=== PATIENT | female | born 1950 | race Caucasian/White ===

== ENCOUNTER 2017-05-18 12:17 | Emergency (ER) | payer BC, MEDICARE ==
[2017-05-18 13:01] VITALS: PULSE 77; RESP 16
[2017-05-18] MEDS ORDERED: SODIUM CHLORIDE 0.9% 500 ML IV STA (14:09)
--- NOTE | 2017-05-18 14:13 | ED ---
General Adult HPI - General Chief complaint: Recheck/Abnormal Lab/Rx Stated complaint: dehydration Time Seen by Provider: 05/18/17 13:00 Source: patient, RN notes reviewed Mode of arrival: ambulatory Limitations: no limitations - History of Present Illness Initial comments: This is a 66-year-old female presents emergency Department who comes emergency Department complaining of generalized weakness since Wednesday patient states she does anything with any exertion and she feels extremely tired. Patient states there is no pain she has had no fever there's been no nausea vomiting. Patient denies any headache patient denies being lightheaded or dizzy. Patient denies chest pain palpitations difficulty breathing shortness of breath. Patient denies any abdominal pain. Patient denies any back pain. Patient denies any dysuria hematuria urinary frequency. Patient states she normally drinks 4 caffeinated cups of tea every day but hasn't done so the last few days ago she feels as though she has no taste for tea or food. - Related Data Home Medications Medication Instructions Recorded Confirmed Ferrous Sulfate [Iron] 325 mg PO HS 05/18/17 05/18/17 Lisinopril [Zestril] 10 mg PO HS 05/18/17 05/18/17 Lovastatin [Mevacor] 20 mg PO HS 05/18/17 05/18/17 Montelukast Sodium [Singulair] 10 mg PO HS 05/18/17 05/18/17 Pioglitazone [Actos] 15 mg PO HS 05/18/17 05/18/17 Verapamil HCl 360 mg PO HS 05/18/17 05/18/17 Allergies Allergy/AdvReac Type Severity Reaction Status Date / Time Sulfa (Sulfonamide Allergy Rash/Hives Verified 05/18/17 13:59 Antibiotics) Review of Systems ROS Statement: Those systems with pertinent positive or pertinent negative responses have been documented in the HPI. ROS Other: All systems not noted in ROS Statement are negative. Past Medical History Past Medical History: Hyperlipidemia, Hypertension Additional Past Medical History / Comment(s): pancreatitis History of Any Multi-Drug Resistant Organisms: None Reported Past Surgical History: Cholecystectomy Past Psychological History: No Psychological Hx Reported Smoking Status: Never smoker Past Alcohol Use History: Rare General Exam - General Exam Comments Initial Comments: GENERAL: Patient is well-developed and well-nourished. Patient is nontoxic and well- hydrated and is in no acute distress. ENT: Neck is soft and supple. No significant lymphadenopathy is noted. Oropharynx is clear. Moist mucous membranes. Neck has full range of motion without eliciting any pain. EYES: The sclera were anicteric and conjunctiva were pink and moist. Extraocular movements were intact and pupils were equal round and reactive to light. Eyelids were unremarkable. PULMONARY: Unlabored respirations. Good breath sounds bilaterally. No audible rales rhonchi or wheezing was noted. CARDIOVASCULAR: There is a regular rate and rhythm without any murmurs gallops or rubs. ABDOMEN: Soft and nontender with normal bowel sounds. No palpable organomegaly was noted. There is no palpable pulsatile mass. SKIN: Skin is clear with no lesions or rashes and otherwise unremarkable. NEUROLOGIC: Patient is alert and oriented x3. Cranial nerves II through XII are grossly intact. Motor and sensory are also intact. Normal speech, volume and content. Symmetrical smile. MUSCULOSKELETAL: Normal extremities with adequate strength and full range of motion. LYMPHATICS: No significant lymphadenopathy is noted PSYCHIATRIC: Normal psychiatric evaluation. Normal interpersonal interactions appears functionally intact in deals appropriately with others. No signs of depression. Limitations: no limitations Course Vital Signs 05/18/17 12:58 Temperature 97.6 F Pulse Rate 77 Respiratory 16 Rate Blood Pressure 123/56 O2 Sat by Pulse 100 Oximetry Medical Decision Making - Medical Decision Making EKG shows normal sinus rhythm at 73 bpm WI interval 134 QRS is 90 QT intervals 416 QTC is 458. Patient's EKG shows no ST segment elevation or depression or T- wave abnormality she noted CT of the brain shows no acute normalities. Chest x-ray shows a nodule to be worked up by her primary medical care doctor. I spoke with the patient she states she will follow-up with her medical care doctor. - Lab Data Result diagrams: 05/18/17 14:16 05/18/17 14:16 Lab Results 05/18/17 05/18/17 05/18/17 Range/Units 14:16 14:16 14:16 WBC 8.3 (3.8-10.6) k/uL RBC 3.92 (3.80-5.40) m/uL Hgb 11.2 L (11.4-16.0) gm/dL Hct 33.5 L (34.0-46.0) % MCV 85.4 (80.0-100.0) fL MCH 28.5 (25.0-35.0) pg MCHC 33.4 (31.0-37.0) g/dL RDW 15.7 H (11.5-15.5) % Plt Count 449 (150-450) k/uL Neutrophils % 68 % Lymphocytes % 24 % Monocytes % 5 % Eosinophils % 1 % Basophils % 0 % Neutrophils # 5.7 (1.3-7.7) k/uL Lymphocytes # 2.0 (1.0-4.8) k/uL Monocytes # 0.4 (0-1.0) k/uL Eosinophils # 0.1 (0-0.7) k/uL Basophils # 0.0 (0-0.2) k/uL PT (9.0-12.0) sec INR (<1.2) APTT (22.0-30.0) sec Sodium 140 (137-145) mmol/L Potassium 3.6 (3.5-5.1) mmol/L Chloride 103 (98-107) mmol/L Carbon Dioxide 22 (22-30) mmol/L Anion Gap 15 mmol/L BUN 15 (7-17) mg/dL Creatinine 0.70 (0.52-1.04) mg/dL Est GFR (MDRD) Af Amer >60 (>60 ml/min/1.73 sqM) Est GFR (MDRD) Non-Af >60 (>60 ml/min/1.73 sqM) Glucose 118 H (74-99) mg/dL Calcium 9.5 (8.4-10.2) mg/dL Magnesium 2.2 (1.6-2.3) mg/dL Total Bilirubin 0.8 (0.2-1.3) mg/dL AST 28 (14-36) U/L ALT 37 (9-52) U/L Alkaline Phosphatase 96 (38-126) U/L Total Creatine Kinase 551 H (30-135) U/L CK-MB (CK-2) 1.4 (0.0-2.4) ng/mL CK-MB (CK-2) Rel Index 0.3 Troponin I <0.012 (0.000-0.034) ng/mL Total Protein 7.8 (6.3-8.2) g/dL Albumin 4.0 (3.5-5.0) g/dL TSH 2.460 (0.465-4.680) mIU/L Free T4 1.13 (0.78-2.19) ng/dL Urine Color Urine Appearance (Clear) Urine pH (5.0-8.0) Ur Specific [place] (1.001-1.035) Urine Protein (Negative) Urine Glucose (UA) (Negative) Urine Ketones (Negative) Urine Blood (Negative) Urine Nitrite (Negative) Urine Bilirubin (Negative) Urine Urobilinogen (<2.0) mg/dL Ur Leukocyte Esterase (Negative) Urine RBC (0-5) /hpf Urine WBC (0-5) /hpf Ur Squamous Epith Cells (0-4) /hpf Urine Bacteria (None) /hpf Urine Mucus (None) /hpf 05/18/17 05/18/17 Range/Units 14:16 14:16 WBC (3.8-10.6) k/uL RBC (3.80-5.40) m/uL Hgb (11.4-16.0) gm/dL Hct (34.0-46.0) % MCV (80.0-100.0) fL MCH (25.0-35.0) pg MCHC (31.0-37.0) g/dL RDW (11.5-15.5) % Plt Count (150-450) k/uL Neutrophils % % Lymphocytes % % Monocytes % % Eosinophils % % Basophils % % Neutrophils # (1.3-7.7) k/uL Lymphocytes # (1.0-4.8) k/uL Monocytes # (0-1.0) k/uL Eosinophils # (0-0.7) k/uL Basophils # (0-0.2) k/uL PT 10.9 (9.0-12.0) sec INR 1.1 (<1.2) APTT 22.1 (22.0-30.0) sec Sodium (137-145) mmol/L Potassium (3.5-5.1) mmol/L Chloride (98-107) mmol/L Carbon Dioxide (22-30) mmol/L Anion Gap mmol/L BUN (7-17) mg/dL Creatinine (0.52-1.04) mg/dL Est GFR (MDRD) Af Amer (>60 ml/min/1.73 sqM) Est GFR (MDRD) Non-Af (>60 ml/min/1.73 sqM) Glucose (74-99) mg/dL Calcium (8.4-10.2) mg/dL Magnesium (1.6-2.3) mg/dL Total Bilirubin (0.2-1.3) mg/dL AST (14-36) U/L ALT (9-52) U/L Alkaline Phosphatase (38-126) U/L Total Creatine Kinase (30-135) U/L CK-MB (CK-2) (0.0-2.4) ng/mL CK-MB (CK-2) Rel Index Troponin I (0.000-0.034) ng/mL Total Protein (6.3-8.2) g/dL Albumin (3.5-5.0) g/dL TSH (0.465-4.680) mIU/L Free T4 (0.78-2.19) ng/dL Urine Color Yellow Urine Appearance Clear (Clear) Urine pH 7.0 (5.0-8.0) Ur Specific [place] 1.018 (1.001-1.035) Urine Protein Trace H (Negative) Urine Glucose (UA) Negative (Negative) Urine Ketones 1+ H (Negative) Urine Blood Negative (Negative) Urine Nitrite Negative (Negative) Urine Bilirubin Negative (Negative) Urine Urobilinogen 4.0 (<2.0) mg/dL Ur Leukocyte Esterase Trace H (Negative) Urine RBC <1 (0-5) /hpf Urine WBC 2 (0-5) /hpf Ur Squamous Epith Cells 1 (0-4) /hpf Urine Bacteria Rare H (None) /hpf Urine Mucus Occasional H (None) /hpf Disposition Clinical Impression: Generalized weakness Disposition: HOME SELF-CARE Condition: Good Instructions: Weakness (ED), Fatigue (ED) Referrals: Jose Luis Huerta DO [Primary Care Provider] - 1-2 days Time of Disposition: 15:28
[2017-05-18 14:29] LABS: Basophils % (A) 0 %; CH 28.4; CHCM 33.3; Eosinophils # (A) 0.1 k/uL (0-0.7); Eosinophils % (A) 1 %; HCT 33.5 % (34.0-46.0); HDW 3.34; HGB 11.2 gm/dL (11.4-16.0); Luc # (Auto) 0.15; Luc % (Auto) 2; Lymphocytes % (A) 24 %; MCH 28.5 pg (25.0-35.0); MCHC 33.4 g/dL (31.0-37.0); MCV 85.4 fL (80.0-100.0); Mean Platelet Volume 7.5; Monocytes # (A) 0.4 k/uL (0-1.0); Monocytes % (A) 5 %; Neutrophils # (A) 5.7 k/uL (1.3-7.7); Neutrophils % (A) 68 %; RBC 3.92 m/uL (3.80-5.40); RDW 15.7 % (11.5-15.5); WBC 8.3 k/uL (3.8-10.6); WBC (Perox) 8.64
[2017-05-18 14:37] LABS: INR 1.1 (<1.2); Partial Thromboplastin Time 22.1 sec (22.0-30.0); Prothrombin Time 10.9 sec (9.0-12.0)
[2017-05-18 14:42] LABS: ALT 37 U/L (9-52); AST 28 U/L (14-36); Alkaline Phosphatase 96 U/L (38-126); Anion Gap 15 mmol/L; Blood Urea Nitrogen 15 mg/dL (7-17); Calcium 9.5 mg/dL (8.4-10.2); Carbon Dioxide 22 mmol/L (22-30); Chloride 103 mmol/L (98-107); Glucose 118 mg/dL (74-99); Magnesium 2.2 mg/dL (1.6-2.3); Non-African American GFR(MDRD) >60 (>60 ml/min/1.73 sqM); Potassium 3.6 mmol/L (3.5-5.1); Sodium 140 mmol/L (137-145); Total Bilirubin 0.8 mg/dL (0.2-1.3); Total Protein 7.8 g/dL (6.3-8.2)
--- NOTE | 2017-05-18 14:50 | XR ---
EXAMINATION TYPE: XR chest 2V DATE OF EXAM: 05/18/2017 HISTORY: Weakness. REFERENCE: NONE. FINDINGS: Heart size is upper limits of normal. There is mild vascular congestion. There is a 7.8 mm nodule superimposed over the left hilum. Pleural spaces are clear. IMPRESSION: 1. BORDERLINE CARDIOMEGALY. 2. VASCULAR CONGESTION. 3. 7.8 MM NODULE SUPERIMPOSED OVER THE LEFT HILUM. A CT SCAN OF THE CHEST WOULD BE SUGGESTED FOR FURT HER ASSESSMENT.
[2017-05-18 14:51] LABS: Creatine Kinase 551 U/L (30-135)
[2017-05-18 15:01] LABS: Appearance,Urine Clear (Clear); Bacteria,Urine Rare /hpf; Bilirubin,Urine Negative (Negative); Glucose,Urine (UA) Negative (Negative); Ketones,Urine 1+ (Negative); Leukocyte Esterase,Urine Trace (Negative); Mucus,Urine Occasional /hpf; Nitrite,Urine Negative (Negative); Particle Count 4167; Protein,Urine Trace (Negative); RBC,Urine <1 /hpf (0-5); Specific Gravity,Urine 1.018 (1.001-1.035); Squamous Epithelial Cell,Urine 1 /hpf (0-4); UA Billing (MACRO vs. MICRO) MICRO; WBC,Urine 2 /hpf (0-5)
[2017-05-18 15:04] LABS: Creatine Kinase MB 1.4 ng/mL (0.0-2.4); Troponin I <0.012 ng/mL (0.000-0.034)
[2017-05-18 15:43] VITALS: BP 101/54; TEMP 97.2
== END 2017-05-18 15:44 | disposition home or self-care (01) ==
LOC: EC 12:17
DX: R53.1 Weakness (principal); E86.0 Dehydration; E78.5 Hyperlipidemia, unspecified; I10 Essential (primary) hypertension; Z79.84 Long term (current) use of oral hypoglycemic drugs; Z79.899 Other long term (current) drug therapy; Z88.2 Allergy status to sulfonamides
CPT/HCPCS: 36415; 71020; 80053; 81001; 82550; 82553; 83735; 84439; 84443; 84484; 85025; 85610; 85730; 93005; 96360; 99284

== ENCOUNTER → 2017-06-01 | Outpatient (CLI) | payer MEDICARE ==
--- NOTE | 2017-06-01 09:05 | CT ---
EXAMINATION TYPE: CT chest wo con DATE OF EXAM: 06/01/2017 COMPARISON: 05/18/2017 chest x-ray HISTORY: abnormal cxr CT DLP: 231.60 mGycm. Automated Exposure Control for Dose Reduction was Utilized. TECHNIQUE: CT scan of the thorax is performed without IV contrast. FINDINGS: LUNGS: Calcified nodule in the right upper lobe is compatible with a granuloma. There is no pleural e ffusion or pneumothorax seen. The tracheobronchial tree is patent. MEDIASTINUM: Lack of IV contrast is noted to limit evaluation for mediastinal and especially hilar ad enopathy. There are no definitive greater than 1 cm hilar or mediastinal lymph nodes. No cardiomega ly or pericardial effusion is seen. Heart is prominent in size and there is atherosclerotic change ao rta and coronary artery calcification. Calcified lymph nodes in the hilum are seen. OTHER: Previous gallbladder surgery noted. Hypertrophic changes of the spine noted. Granuloma in the spleen and liver are seen. IMPRESSION: 1. Calcified granuloma right upper lobe. No suspicious left-sided pulmonary nodule. 2. There is soft tissue fullness in the peripancreatic region recommended to be correlated with dedic ated CT of the abdomen. This is markedly limited in assessment by noncontrast technique. Correlate fo r abdominal pain history.
== END | disposition home or self-care (01) ==
LOC: RADCTMAIN 08:29
PROVIDERS: ATTEND Family Medicine
DX: J98.4 Other disorders of lung (principal)
CPT/HCPCS: 71250

== ENCOUNTER → 2017-06-15 | Outpatient (CLI) | payer MEDICARE ==
[2017-06-15 14:01] LABS: Blood Urea Nitrogen 17 mg/dL (7-17); Non-African American GFR(MDRD) >60 (>60 ml/min/1.73 sqM)
--- NOTE | 2017-06-15 15:24 | CT ---
EXAMINATION TYPE: CT abdomen w con DATE OF EXAM: 06/15/2017 HISTORY: Abn CT chest study CT DLP: 466.4mGycm Automated Exposure Control for Dose Reduction was Utilized. CONTRAST: CT scan of the abdomen is performed with oral and with IV Contrast, patient injected with 100 mL of O mnipaque 300. COMPARISON: CT chest June 01, 2017. FINDINGS: LUNG BASES: No significant abnormality is appreciated. LIVER/GB: Cholecystectomy clips are redemonstrated. PANCREAS: Pancreas is markedly abnormal. Pancreatic head and uncinate process are mildly prominent wi thout suspicious mass or ductal dilatation. The pancreatic body is significantly abnormal as is heter ogeneous and enlarged with irregular solid but predominantly cystic lesion measuring approximately 6. 5 x 4.5 cm anterior to the SMV and main portal vein. Splenic vein is narrowed at confluence with SMV. There are foci of air within this splenic mass. There appears to be some surrounding fluid anteriorl y. There are small but subcentimeter lymph nodes inferiorly. There is mild ill-defined fluid and fat stranding inferiorly. Adjacent lesser curvature shows moderate wall thickening extending into antrum. Normal opacified body and tail of pancreas are not well visualized. SPLEEN: No significant abnormality is seen. ADRENALS: No significant abnormality is seen. KIDNEYS: No significant abnormality is seen. BOWEL: There is small hiatal hernia redemonstrated UTERUS/ADNEXA: No gross abnormality seen. LYMPH NODES: No greater than 1cm abdominal lymph nodes are appreciated. OSSEOUS STRUCTURES: No significant abnormality is seen. OTHER: There is mild to moderate calcified plaque of aorta extending into branch vessels. IMPRESSION: 1. Large multi septated cystic lesion occupying central pancreatic body worrisome for multiloculated pancreatic abscess or pancreatic pseudocysts (former slightly favored due to internal location along the expected course of the pancreatic body) given surrounding ill-defined fluid and fat stranding and prominent but subcentimeter adenopathy. Cystic neoplasm felt less likely but not excluded. Correlate clinically with symptoms of acute pancreatitis and pancreatic lab values. Critical results communicated to ordering physician via telephone at time of dictation. A [place] message has been communicated to Jose Luis Huerta DO via the [employer] system on 06/15/2017 3:21 PM, Message ID [id number].
== END | disposition home or self-care (01) ==
LOC: RADCTMAIN 13:20
PROVIDERS: ATTEND Family Medicine
DX: K86.2 Cyst of pancreas (principal)
CPT/HCPCS: 82565; 84520; 74160; 36415; Q9967

== ENCOUNTER 2017-10-05 12:09 | Day surgery (SDC) | payer MEDICARE ==
[2017-10-05 12:49] VITALS: RESP 14; TEMP 97.6
[2017-10-05 13:36] VITALS: BP 98/58; PULSE 71
--- NOTE | 2017-10-05 14:34 | US ---
EXAMINATION TYPE: US FNA thyroid DATE OF EXAM: 10/05/2017 COMPARISON: NONE HISTORY: Thyroid nodule. Maximal barrier technique was utilized. After informed consent, skin overlying the lesion was locali zed with ultrasound and the overlying skin prepped and draped. Ultrasound was utilized using sterile technique. Lidocaine was used for local anesthesia. Five passes with a 25-gauge needle were made int o the nodule and aspirated specimen was submitted to cytology. Following the procedure hemostasis ac hieved. No immediate complication. The patient discharged in stable condition. IMPRESSION: STATUS POST ULTRASOUND GUIDED FINE NEEDLE ASPIRATION OF THYROID NODULE, PATHOLOGY IS PEND ING. THIS PROCEDURE WAS PERFORMED BY THE UNDERSIGNED.
== END 2017-10-05 13:41 | disposition home or self-care (01) ==
LOC: RADPROMAIN 12:09
PROVIDERS: ATTEND Family Medicine
DX: E04.1 Nontoxic single thyroid nodule (principal)
CPT/HCPCS: 10022; 76942; 88173; 88305

== ENCOUNTER → 2019-01-09 | Outpatient (CLI) | payer MEDICARE ==
--- NOTE | 2019-01-09 15:58 | XR ---
EXAMINATION TYPE: XR chest 2V DATE OF EXAM: 01/09/2019 COMPARISON: 05/18/2017 INDICATION: Cough x1 month TECHNIQUE: Frontal and lateral views of the chest are obtained. FINDINGS: The heart size is normal. The pulmonary vasculature is normal. Posterior nodule is again evident. Port is present on the right with the tip in superior vena cava re gion.. IMPRESSION: 1. No acute pulmonary process. 2. Chest x-ray stable from comparison
== END ==
LOC: RADXRYALE 11:55
PROVIDERS: ATTEND Physician Assistant Medical
DX: R05 Cough (principal)
CPT/HCPCS: 71046

== ENCOUNTER → 2019-04-27 | Outpatient (CLI) | payer MEDICARE ==
--- NOTE | 2019-04-27 14:36 | XR ---
EXAMINATION TYPE: XR chest 2V DATE OF EXAM: 04/27/2019 COMPARISON: Chest x-ray January 09, 2019. HISTORY: Shortness of breath TECHNIQUE: Frontal and lateral views of the chest are obtained. FINDINGS: Stable right-sided Mediport catheter. There is no focal air space opacity, pleural effusion , or pneumothorax seen. The cardiac silhouette size is within normal limits with atherosclerotic krystle nge in aortic knob. The osseous structures are intact. Cholecystectomy clips are redemonstrated. IMPRESSION: No suspicious acute pulmonary process.
== END | disposition home or self-care (01) ==
LOC: RADXRYALE 14:10
PROVIDERS: ATTEND Physician Assistant Medical
DX: R10.11 Right upper quadrant pain (principal); R06.02 Shortness of breath
CPT/HCPCS: 71046

== ENCOUNTER 2019-05-18 03:32 | Inpatient (IN) | payer MEDICARE ==
[2019-05-18] MEDS ORDERED: PANTOPRAZOLE 40 MG/10 ML VIAL IVP STA (03:52)
[2019-05-18] MEDS ORDERED: OCTREOTIDE 100 MCG/ML INJ IVP STA (03:52)
[2019-05-18] MEDS ORDERED: SODIUM CHLORIDE 0.9% 1,000 ML IV STA (03:52)
[2019-05-18] MEDS ORDERED: ONDANSETRON 4 MG/2 ML VIAL IM STA (03:52)
[2019-05-18] MEDS ORDERED: cefTRIAXone IN SWFI 1,000 MG/10 ML SYRINGE IVP STA (03:53)
--- NOTE | 2019-05-18 03:53 | ED ---
GI Bleed HPI - General Chief complaint: GI Bleed Stated complaint: Fall, vomiting blood Time Seen by Provider: 05/18/19 03:44 Source: patient, EMS Mode of arrival: EMS - History of Present Illness Initial comments: Deann is a 68-year-old female with stage IV metastatic pancreatic cancer who is brought to the ED today via EMS for evaluation of generalized weakness, fall out of bed and GI bleed. reports that they were sleeping when he heard her roll out of bed. She was too weak to get herself off the floor so he picked her up and put her back in bed. Shortly after he noticed that she seemed to be vomiting blood. He reports that she has frequent GI upset but is never vomited blood before. Patient complains of feeling dizzy and like she is about to pass out. Further history is limited by the severity of the patient's condition. - Related Data Allergies Allergy/AdvReac Type Severity Reaction Status Date / Time Sulfa (Sulfonamide Allergy Rash/Hives Verified 05/18/19 07:42 Antibiotics) Review of Systems ROS Statement: Those systems with pertinent positive or pertinent negative responses have been documented in the HPI. ROS Other: All systems not noted in ROS Statement are negative. Past Medical History Past Medical History: Diabetes Mellitus, GERD/Reflux, Hyperlipidemia, Hypertension, Thyroid Disorder Additional Past Medical History / Comment(s): pancreatitis History of Any Multi-Drug Resistant Organisms: None Reported Past Surgical History: Appendectomy, Cholecystectomy Additional Past Surgical History / Comment(s): cataract surgery - bilateral Past Anesthesia/Blood Transfusion Reactions: No Reported Reaction Past Psychological History: No Psychological Hx Reported Smoking Status: Never smoker Past Alcohol Use History: Rare Past Drug Use History: None Reported - Past Family History Father Family Medical History: Diabetes Mellitus General Exam - General Exam Comments Initial Comments: Physical Exam GENERAL: Chronically ill-appearing, pale, vomiting blood HENT: Temporal wasting EYES: Eyes are sunken, pupils equal round Conjunctival pallor PULMONARY: Unlabored respirations. No audible rales rhonchi or wheezing was noted. CARDIOVASCULAR: Tachycardic regular ABDOMEN: Scaphoid SKIN: Pale : Deferred NEUROLOGIC: Resting with eyes closed, wakes to voice, recognizes family, complains of lightheadedness MUSCULOSKELETAL: Generalized atrophy PSYCHIATRIC: Unable to assess Course Vital Signs 05/18/19 05/18/19 05/18/19 03:35 03:46 04:15 Temperature 97.1 F L 97.1 F L Pulse Rate 56 L 119 H 114 H Pulse Rate [ Supine Assistant Professor [employer] Education] Respiratory 22 22 20 Rate Blood Pressure 128/70 107/60 Blood Pressure [Left Arm] O2 Sat by Pulse 100 100 Oximetry 05/18/19 05/18/19 05/18/19 04:20 04:45 04:52 Temperature 98.1 F 98.1 F 98.0 F Pulse Rate 97 113 H 99 Pulse Rate [ 99 Supine Assistant Professor [employer] Education] Respiratory 20 18 18 Rate Blood Pressure 113/80 117/75 116/102 Blood Pressure 116/102 [Left Arm] O2 Sat by Pulse 100 99 100 Oximetry 05/18/19 05/18/19 05/18/19 05:03 05:11 05:20 Temperature 98.1 F 98.0 F 97.4 F L Pulse Rate 107 H 105 H Pulse Rate [ 109 H Supine Assistant Professor [employer] Education] Respiratory 20 20 18 Rate Blood Pressure 131/98 144/104 Blood Pressure 117/76 [Left Arm] O2 Sat by Pulse 100 Oximetry 05/18/19 05/18/19 05/18/19 05:26 05:41 05:50 Temperature 97.6 F 97.6 F 97.5 F L Pulse Rate 103 H 99 90 Pulse Rate [ Supine Assistant Professor [employer] Education] Respiratory 18 18 20 Rate Blood Pressure 140/70 159/98 148/74 Blood Pressure [Left Arm] O2 Sat by Pulse 100 100 Oximetry 05/18/19 05/18/19 05/18/19 05:54 05:55 06:04 Temperature 97.7 F 97.7 F 98.1 F Pulse Rate 101 H 85 93 Pulse Rate [ Supine Assistant Professor [employer] Education] Respiratory 20 16 18 Rate Blood Pressure 154/82 148/74 169/77 Blood Pressure [Left Arm] O2 Sat by Pulse 100 100 100 Oximetry 05/18/19 05/18/19 06:20 06:33 Temperature 98.0 F 98.1 F Pulse Rate 101 H Pulse Rate [ 88 Supine Assistant Professor [employer] Education] Respiratory 18 20 Rate Blood Pressure 157/88 Blood Pressure 172/98 [Left Arm] O2 Sat by Pulse 100 Oximetry Medical Decision Making - Medical Decision Making Patient was seen and evaluated history was obtained from family at bedside and EMS This is a 68-year-old female with stage IV pancreatic cancer Patient minimally responsive, crying, lightheaded tachycardic hypotensive a ctively vomiting blood midline patient was moved to the resuscitation bay massive transfusion protocol was initiated TXA was ordered given that this is a GI bleed in a patient who may have varices secondary to metastases, decision was made to start Protonix x-ray tired and Rocephin Patient care was discussed with ICU physician Dr. Oakes who agrees with plan for admission to the ICU. Patient is agreeable to IV medications and blood however has made it clear in her advanced directives that she would not want intubation or CPR. This plan was discussed with Dr. Zhao. Patient was reevaluated after blood transfusion, her color has improved she is doing much better she is feeling much better she continues to vomit approximately 20 30 mL of blood every hour however is much more stable she is now hypertensive. Patient care was discussed with Dr. Mera gastroenterology - Lab Data Result diagrams: 05/18/19 04:02 05/18/19 04:02 Lab Results 05/18/19 05/18/19 05/18/19 Range/Units 04:02 04:02 04:02 WBC 19.6 H (3.8-10.6) k/uL RBC 2.72 L (3.80-5.40) m/uL Hgb 6.2 L* (11.4-16.0) gm/dL Hct 22.3 L (34.0-46.0) % MCV 82.3 (80.0-100.0) fL MCH 22.8 L (25.0-35.0) pg MCHC 27.7 L (31.0-37.0) g/dL RDW 22.2 H (11.5-15.5) % Plt Count 286 (150-450) k/uL Neutrophils % 77 % Lymphocytes % 17 % Monocytes % 4 % Eosinophils % 0 % Basophils % 0 % Neutrophils # 15.1 H (1.3-7.7) k/uL Lymphocytes # 3.4 (1.0-4.8) k/uL Monocytes # 0.7 (0-1.0) k/uL Eosinophils # 0.1 (0-0.7) k/uL Basophils # 0.1 (0-0.2) k/uL Hypochromasia Marked Anisocytosis Moderate Microcytosis Slight PT (9.0-12.0) sec INR (<1.2) APTT (22.0-30.0) sec Sodium 133 L (137-145) mmol/L Potassium 4.1 (3.5-5.1) mmol/L Chloride 98 (98-107) mmol/L Carbon Dioxide 11 L (22-30) mmol/L Anion Gap 24 mmol/L BUN 24 H (7-17) mg/dL Creatinine 0.92 (0.52-1.04) mg/dL Est GFR (CKD-EPI)AfAm 74 (>60 ml/min/1.73 sqM) Est GFR (CKD-EPI)NonAf 64 (>60 ml/min/1.73 sqM) Glucose 336 H (74-99) mg/dL Plasma Lactic Acid Alek (0.7-2.0) mmol/L Calcium 8.6 (8.4-10.2) mg/dL Magnesium 2.5 H (1.6-2.3) mg/dL Total Bilirubin 0.4 (0.2-1.3) mg/dL AST 28 (14-36) U/L ALT 19 (9-52) U/L Alkaline Phosphatase 436 H (38-126) U/L Troponin I (0.000-0.034) ng/mL Total Protein 6.1 L (6.3-8.2) g/dL Albumin 2.8 L (3.5-5.0) g/dL Blood Type O Negative Blood Type Recheck O Neg Bld Type Recheck Status No Antibody Screen NEGATIVE Crossmatch See Detail Transfuse Plasma 05/18/2019 Spec Expiration Date 05/21/2019230105/18/19 05/18/19 05/18/19 Range/Units 04:02 04:02 04:02 WBC (3.8-10.6) k/uL RBC (3.80-5.40) m/uL Hgb (11.4-16.0) gm/dL Hct (34.0-46.0) % MCV (80.0-100.0) fL MCH (25.0-35.0) pg MCHC (31.0-37.0) g/dL RDW (11.5-15.5) % Plt Count (150-450) k/uL Neutrophils % % Lymphocytes % % Monocytes % % Eosinophils % % Basophils % % Neutrophils # (1.3-7.7) k/uL Lymphocytes # (1.0-4.8) k/uL Monocytes # (0-1.0) k/uL Eosinophils # (0-0.7) k/uL Basophils # (0-0.2) k/uL Hypochromasia Anisocytosis Microcytosis PT 12.1 H (9.0-12.0) sec INR 1.2 H (<1.2) APTT 29.5 (22.0-30.0) sec Sodium (137-145) mmol/L Potassium (3.5-5.1) mmol/L Chloride (98-107) mmol/L Carbon Dioxide (22-30) mmol/L Anion Gap mmol/L BUN (7-17) mg/dL Creatinine (0.52-1.04) mg/dL Est GFR (CKD-EPI)AfAm (>60 ml/min/1.73 sqM) Est GFR (CKD-EPI)NonAf (>60 ml/min/1.73 sqM) Glucose (74-99) mg/dL Plasma Lactic Acid Alek 14.0 H* (0.7-2.0) mmol/L Calcium (8.4-10.2) mg/dL Magnesium (1.6-2.3) mg/dL Total Bilirubin (0.2-1.3) mg/dL AST (14-36) U/L ALT (9-52) U/L Alkaline Phosphatase (38-126) U/L Troponin I <0.012 (0.000-0.034) ng/mL Total Protein (6.3-8.2) g/dL Albumin (3.5-5.0) g/dL Blood Type Blood Type Recheck Bld Type Recheck Status Antibody Screen Crossmatch Transfuse Plasma Spec Expiration Date Critical Care Time Critical Care Time: Yes Total Critical Care Time: 45 Critical Care Time: Critical Care Time Critical care time was exclusive of separately billable procedures and treating other patients and teaching time. Critical care was necessary to treat or prevent imminent or life-threatening deterioration. Given the critical condition in which the patient arrived, the patient was immediately assessed by myself and the nurse, and cardiac monitoring initiated due to the potential for rapid decompensation of the patient's clinical condition. During the course of the patients stay, I spent a considerable amount of time at the bedside performing serial re-evaluations of the patient's hemodynamic and clinical status because of the recognized potential threat to life or limb in this condition. I then had a chance to review not only all of the available current laboratory and radiographic studies obtained today, but I also reviewed old records available to me at the time. Additionally, any ancillary information available including production staff worker records were reviewed. Sequential vital signs were obtained. Disposition Clinical Impression: Acute blood loss anemia, Lactic acidosis, Upper GI bleed, Primary pancreatic cancer with metastasis to other site Disposition: ADMITTED IP TO THIS HOSP Condition: Critical Is patient prescribed a controlled substance at d/c from ED?: No
[2019-05-18 04:25] LABS: Anisocytosis Moderate; Basophils # (A) 0.1 k/uL (0-0.2); Basophils % (A) 0 %; Eosinophils # (A) 0.1 k/uL (0-0.7); Eosinophils % (A) 0 %; HCT 22.3 % (34.0-46.0); Hypochromasia Marked; Lymphocytes # (A) 3.4 k/uL (1.0-4.8); Lymphocytes % (A) 17 %; MCH 22.8 pg (25.0-35.0); MCHC 27.7 g/dL (31.0-37.0); MCV 82.3 fL (80.0-100.0); Mean Platelet Volume 7.8; Microcytosis Slight; Monocytes # (A) 0.7 k/uL (0-1.0); Monocytes % (A) 4 %; Neutrophils # (A) 15.1 k/uL (1.3-7.7); Neutrophils % (A) 77 %; Platelet Count 286 k/uL (150-450); RBC 2.72 m/uL (3.80-5.40); RDW 22.2 % (11.5-15.5); WBC 19.6 k/uL (3.8-10.6)
[2019-05-18 04:27] LABS: Albumin 2.8 g/dL (3.5-5.0); Calcium 8.6 mg/dL (8.4-10.2); HGB 6.2 gm/dL (11.4-16.0); Magnesium 2.5 mg/dL (1.6-2.3); Potassium 4.1 mmol/L (3.5-5.1); Total Bilirubin 0.4 mg/dL (0.2-1.3); Total Protein 6.1 g/dL (6.3-8.2)
[2019-05-18 04:30] LABS: INR 1.2 (<1.2); Partial Thromboplastin Time 29.5 sec (22.0-30.0); Prothrombin Time 12.1 sec (9.0-12.0)
[2019-05-18] MEDS ORDERED: TRANEXAMIC ACID 1,000 MG in SODIUM CHLORIDE 0.9% 100 ML IVPB ONE (04:42)
[2019-05-18] MEDS ORDERED: NALOXONE 0.4 MG/ML 1 ML VIAL IV PRN (05:14)
[2019-05-18] MEDS ORDERED: ONDANSETRON 4 MG/2 ML VIAL IVP PRN (05:14)
[2019-05-18] MEDS ORDERED: LORazepam 2 MG/ML INJ IV PRN (05:14)
--- NOTE | 2019-05-18 05:51 | XR ---
EXAM: XR Chest, 1 View CLINICAL HISTORY: ITS.REASON XR Reason: pain TECHNIQUE: Frontal view of the chest. COMPARISON: No relevant prior studies available. FINDINGS: Lungs: Unremarkable. No consolidation. Pleural space: Unremarkable. No pneumothorax. Heart: No pneumomediastinum. Mediastinum: Unremarkable. Bones/joints: No definite fracture. IMPRESSION: No acute findings.
[2019-05-18] MEDS ORDERED: ONDANSETRON 4 MG/2 ML VIAL IVP STA (06:08)
[2019-05-18 08:01] LABS: Glucose,Whole Blood 290 mg/dL (75-99)
--- NOTE | 2019-05-18 08:15 | P.CNPUL ---
History of Present Illness Consult date: 05/18/19 Requesting physician: Urvashi Browne Reason for consult: other Chief complaint: Hematemesis, acute GI bleeding, and anemia History of present illness: This is a 68-year-old white female patient with history of stage IV pancreatic cancer, who has not started treatment, came into the emergency department per EMS for evaluation of acute GI bleeding, hematemesis, patient started vomiting bright red blood, with clots, generalized weakness, patient fell out of bed last night, she was too weak to get up off the floor herself. Patient has no prior episodes of GI bleeding, reports having endoscopic studies before, unsure of the results. Patient was feeling dizzy, and felt like she was going to pass out. In the emergency department patient's hemoglobin is 6.2, white blood cell count is 19.6, INR is 1.2, serum sodium was 133, potassium is 4.1, CO2 is 11, B1 is 24, creatinine 0.92, plasma lactic acid was 14, troponin was negative 1, AST and ALT were 28 and 19 respectively, with alkaline phosphatase at 436. Patient follows with Dr. Zamora. Has not started treatment yet, she is currently DO NOT RESUSCITATE status. Patient was mildly tachycardic, but no hypotension, she was started on massive blood transfusion protocol this morning, and she has been transfused with 4 units of packed red blood cells and 2 units of fresh frozen plasma. She has just arrived in the intensive care unit, she is still actively having hematemesis, bright red blood, but no difficulty breathing, denies any abdominal pain. Past medical history is that of diabetes mellitus, GERD/reflux, hypertension, hyperlipidemia, and benign thyroid nodule, patient is a lifetime nonsmoker. GI service has been consulted, and the patient is unsure whether she was to proceed with with endoscopy, she is requesting Dr. Marks to speak to her family first. Review of Systems All systems: negative Constitutional: Reports weakness, Denies chills, Denies fever Eyes: denies blurred vision, denies pain Ears, nose, mouth and throat: Denies headache, Denies sore throat Cardiovascular: Denies chest pain, Denies shortness of breath Respiratory: Denies cough Gastrointestinal: Reports hematemesis, Denies abdominal pain, Denies diarrhea, Denies nausea, Denies vomiting Genitourinary: Denies dysuria, Denies hematuria Musculoskeletal: Denies myalgias Integumentary: Denies pruritus, Denies rash Neurological: Reports weakness, Denies numbness Psychiatric: Denies anxiety, Denies depression Endocrine: Denies fatigue, Denies weight change Past Medical History Past Medical History: Diabetes Mellitus, GERD/Reflux, Hyperlipidemia, Hypertension, Thyroid Disorder Additional Past Medical History / Comment(s): pancreatitis History of Any Multi-Drug Resistant Organisms: None Reported Past Surgical History: Appendectomy, Cholecystectomy Additional Past Surgical History / Comment(s): cataract surgery - bilateral Past Anesthesia/Blood Transfusion Reactions: No Reported Reaction Past Psychological History: No Psychological Hx Reported Smoking Status: Never smoker Past Alcohol Use History: Rare Past Drug Use History: None Reported - Past Family History Father Family Medical History: Diabetes Mellitus Medications and Allergies Home Medications Medication Instructions Recorded Confirmed Type Acetaminophen Tab [Tylenol Tab] 1,000 mg PO Q6HR PRN 05/18/19 05/18/19 History Morphine Sulfate 15 mg PO Q6H PRN 05/18/19 05/18/19 History Allergies Allergy/AdvReac Type Severity Reaction Status Date / Time Sulfa (Sulfonamide Allergy Rash/Hives Verified 05/18/19 07:42 Antibiotics) Physical Exam Vitals: Vital Signs Temp Pulse Pulse Resp BP BP Pulse Ox 05/18/19 06:33 98.1 F 88 20 172/98 100 05/18/19 06:20 98.0 F 101 H 18 157/88 05/18/19 06:04 98.1 F 93 18 169/77 100 05/18/19 05:55 97.7 F 85 16 148/74 100 05/18/19 05:54 97.7 F 101 H 20 154/82 100 05/18/19 05:50 97.5 F L 90 20 148/74 100 05/18/19 05:41 97.6 F 99 18 159/98 100 05/18/19 05:26 97.6 F 103 H 18 140/70 05/18/19 05:20 97.4 F L 105 H 18 144/104 05/18/19 05:11 98.0 F 107 H 20 131/98 05/18/19 05:03 98.1 F 109 H 20 117/76 100 05/18/19 04:52 98.0 F 99 99 18 116/102 116/102 100 05/18/19 04:45 98.1 F 113 H 18 117/75 99 05/18/19 04:20 98.1 F 97 20 113/80 100 05/18/19 04:15 97.1 F L 114 H 20 107/60 100 05/18/19 03:46 119 H 22 100 05/18/19 03:35 97.1 F L 56 L 22 128/70 Intake and Output 05/17/19 05/18/19 05/18/19 22:59 06:59 14:59 Intake Total 1849 Balance 1849 Intake: Blood Product 1849 Ffp 24 Cpd Unit 308 [id number] Ffp 24 Cpd Unit 301 [id number] Rc As-1 Unit 310 [id number] Rc As-1 Unit 310 [id number] Rc As-1 Unit 310 [id number] Rc Irr As1 Unit 310 [id number] Other: Weight 49.895 kg GENERAL EXAM: Alert, very pleasant, slightly pale, thin 68-year-old white female, who has emesis basin, and is having episodes of hematemesis with bright red with the emesis. HEAD: Normocephalic/atraumatic. EYES: Normal reaction of pupils, equal size. Conjunctiva pink, sclera white. NOSE: Clear with pink turbinates. THROAT: No erythema or exudates. NECK: No masses, no JVD, no thyroid enlargement, no adenopathy. CHEST: No chest wall deformity. Symmetrical expansion. LUNGS: Equal air entry with no crackles, wheeze, rhonchi or dullness. CVS: Regular rate and rhythm, normal S1 and S2, no gallops, no murmurs, no rubs ABDOMEN: Soft, nontender. No hepatosplenomegaly, normal bowel sounds, no guarding or rigidity. EXTREMITIES: No clubbing, no edema, no cyanosis, 2+ pulses and upper and lower extremities. MUSCULOSKELETAL: Muscle strength and tone normal. SPINE: No scoliosis or deformity SKIN: No rashes CENTRAL NERVOUS SYSTEM: Alert and oriented -3. No focal deficits, tone is normal in all 4 extremities. PSYCHIATRIC: Alert and oriented -3. Appropriate affect. Intact judgment and insight. Results - Laboratory Findings CBC and BMP: 05/18/19 04:02 05/18/19 04:02 PT/INR, D-dimer PT 12.1 sec (9.0-12.0) H 05/18/19 04:02 INR 1.2 (<1.2) H 05/18/19 04:02 Abnormal lab findings: Abnormal Labs 05/18/19 05/18/19 05/18/19 04:02 04:02 04:02 WBC 19.6 H RBC 2.72 L Hgb 6.2 L* Hct 22.3 L MCH 22.8 L MCHC 27.7 L RDW 22.2 H Neutrophils # 15.1 H PT INR Sodium 133 L Carbon Dioxide 11 L BUN 24 H Glucose 336 H Plasma Lactic Acid Alek Magnesium 2.5 H Alkaline Phosphatase 436 H Total Protein 6.1 L Albumin 2.8 L Crossmatch See Detail 05/18/19 05/18/19 04:02 04:02 WBC RBC Hgb Hct MCH MCHC RDW Neutrophils # PT 12.1 H INR 1.2 H Sodium Carbon Dioxide BUN Glucose Plasma Lactic Acid Alek 14.0 H* Magnesium Alkaline Phosphatase Total Protein Albumin Crossmatch - Diagnostic Findings Chest x-ray: report reviewed, image reviewed Assessment and Plan Plan: Assessment: #1. Acute GI bleeding, hematemesis, and acute GI blood loss anemia patient came in with a hemoglobin of 6.2, has been transfused with 4 units of packed red blood cells and 2 units of fresh frozen plasma #2. Stage IV pancreatic cancer #3. Acute lactic acidosis, related to GI bleeding, not related to sepsis #4. Diabetes mellitus #5. GERD/reflux #6. Lifetime nonsmoker #7. History of a thyroid nodule, with benign biopsy #8. History of cataract Plan: We'll continue with PPI therapy, continue with IV fluids, patient has been transfused with 4 units of packed blood cells and 2 units of FFP, serial H&H's, currently hemodynamically stable, no fever, no chills, no difficulty breathing, chest x-ray is negative, code status is DO NOT RESUSCITATE, GI service is following, patient requested with Dr. Marks to speak to her family before she makes a decision about endoscopic studies. In view of advanced pancreatic cancer conservative treatment is probably appropriate. Oncology has been consutled She has been given a dose of IV Sandostatin in the emergency department, will await further recommendations from GI service, we will continue to follow I performed a history & physical examination of the patient and discussed their management with my nurse practitioner, Salena Phillip. I reviewed the nurse practitioner's note and agree with the documented findings and plan of care. Lung sounds are positive for clear. The findings and the impression was discussed with the patient. I attest to the documentation by the nurse practitioner. Time with Patient: Greater than 30
[2019-05-18 09:02] LABS: Anisocytosis Slight; HCT 34.1 % (34.0-46.0); Hypochromasia Marked; MCH 28.4 pg (25.0-35.0); MCHC 32.5 g/dL (31.0-37.0); Mean Platelet Volume 8.9; Platelet Count 183 k/uL (150-450); Poikilocytosis Moderate; RBC 3.91 m/uL (3.80-5.40); RDW 18.6 % (11.5-15.5)
[2019-05-18 09:08] LABS: HGB 11.1 gm/dL (11.4-16.0); MCV 87.3 fL (80.0-100.0)
[2019-05-18] MEDS: PANTOPRAZOLE 40 MG/10 ML VIAL IVP SCH ×2 (09:24→21:06)
[2019-05-18] MEDS: MORPHINE SULFATE 4 MG/ML SYRINGE IV PRN ×2 (09:24→21:13)
--- NOTE | 2019-05-18 10:35 | P.CONS ---
History of Present Illness - Reason for Consult Consult date: 05/18/19 GI bleed Requesting physician: Jose Luis Huerta - Chief Complaint Weakness, vomiting blood - History of Present Illness 68-year-old female with medical history significant for diabetes mellitus, hypertension, hyperlipidemia and stage IV metastatic pancreatic cancer who pre sented to the emergency department 2 to vomiting blood and weakness. History has been taken in conversation with the patient and her . Apparently the patient woke up and was nauseated and withdrawn to the floor but was too weak to get up. She subsequently had multiple episodes of gross bright red blood with vomiting. Denies any associated abdominal pain. Does report feeling weak. No prior history of upper GI bleeding, however the patient has had endoscopic evaluation with what the patient describes as endoscopic ultrasound with pancreatic biopsy twice in the past. She states that on the last EUS in March she was told she had a hiatal hernia and ulcer. She denies any antacid therapy. She denies any NSAID use and reports taking Tylenol as needed. The patient underwent liver biopsy for which she describes as 2 masses in her liver. She states that she was supposed started chemotherapy yesterday but decided against it. On presentation to the hospital patient was found to have a hemoglobin of 6.2, the PC 19.6, INR 1.2. The patient received 4 units of PRBCs in the emergen cy department as well as 2 units of fresh frozen plasma and tranexamic acid. Review of Systems REVIEW OF SYSTEMS: CONSTITUTIONAL: Denies any fevers, chills, but does report fatigue and weakness. CARDIOVASCULAR: Denies any chest pain, palpitations high or low blood pressures RESPIRATORY: Denies any shortness of breath, hemoptysis or cough. GENITOURINARY: No dysuria or hematuria. MUSCULOSKELETAL: Generalized weakness. SKIN: Denies any new rashes or lesions, jaundice or pallor. PSYCHIATRIC: Denies any recent change in mood. NEUROLOGY: Denies headache, denies any new focal deficits. EARS/NOSE/THROAT: No recent hearing change, congestion, nasal discharge or sore throat. EYES: No pain in eyes, discharge or change in vision. GASTROINTESTINAL: As per HPI. Past Medical History Past Medical History: Diabetes Mellitus, GERD/Reflux, Hyperlipidemia, Hypertension, Thyroid Disorder Additional Past Medical History / Comment(s): pancreatitis History of Any Multi-Drug Resistant Organisms: None Reported Past Surgical History: Appendectomy, Cholecystectomy Additional Past Surgical History / Comment(s): cataract surgery - bilateral Past Anesthesia/Blood Transfusion Reactions: No Reported Reaction Past Psychological History: No Psychological Hx Reported Smoking Status: Never smoker Past Alcohol Use History: Rare Past Drug Use History: None Reported - Past Family History Father Family Medical History: Diabetes Mellitus Medications and Allergies Home Medications Medication Instructions Recorded Confirmed Type Acetaminophen Tab [Tylenol Tab] 1,000 mg PO Q6HR PRN 05/18/19 05/18/19 History Morphine Sulfate 15 mg PO Q6H PRN 05/18/19 05/18/19 History Allergies Allergy/AdvReac Type Severity Reaction Status Date / Time Sulfa (Sulfonamide Allergy Rash/Hives Verified 05/18/19 07:42 Antibiotics) Physical Exam Vitals: Vital Signs Temp Pulse Pulse Resp BP BP Pulse Ox 05/18/19 08:25 89 14 158/111 97 05/18/19 06:33 98.1 F 88 20 172/98 100 05/18/19 06:20 98.0 F 101 H 18 157/88 05/18/19 06:04 98.1 F 93 18 169/77 100 05/18/19 05:55 97.7 F 85 16 148/74 100 05/18/19 05:54 97.7 F 101 H 20 154/82 100 05/18/19 05:50 97.5 F L 90 20 148/74 100 05/18/19 05:41 97.6 F 99 18 159/98 100 05/18/19 05:26 97.6 F 103 H 18 140/70 05/18/19 05:20 97.4 F L 105 H 18 144/104 05/18/19 05:11 98.0 F 107 H 20 131/98 05/18/19 05:03 98.1 F 109 H 20 117/76 100 05/18/19 04:52 98.0 F 99 99 18 116/102 116/102 100 05/18/19 04:45 98.1 F 113 H 18 117/75 99 05/18/19 04:20 98.1 F 97 20 113/80 100 05/18/19 04:15 97.1 F L 114 H 20 107/60 100 05/18/19 03:46 119 H 22 100 05/18/19 03:35 97.1 F L 56 L 22 128/70 Intake and Output 05/17/19 05/18/19 05/18/19 22:59 06:59 14:59 Intake Total 1849 Balance 1849 Intake: Blood Product 1849 Ffp 24 Cpd Unit 308 [id number] Ffp 24 Cpd Unit 301 [id number] Rc As-1 Unit 310 [id number] Rc As-1 Unit 310 [id number] Rc As-1 Unit 310 [id number] Rc Irr As1 Unit 310 [id number] Other: Weight 49.895 kg On physical examination, patient appears comfortable in no apparent distress. HEAD: Normocephalic, atraumatic. EYES: No scleral icterus. No conjunctival injection. MOUTH: No lesions, tongue midline. NECK: Trachea midline, no gross abnormalities. CHEST: Clear to auscultation with no wheezing or rhonchi appreciated. HEART: Regular rate and rhythm. ABDOMEN: Soft, thin. Bowel sounds are positive. No organomegaly. No guarding or rigidity. EXTREMITIES: No pedal edema. SKIN: No rashes, no jaundice, overall pallor noted. NEUROLOGIC: Alert and oriented x3. No focal deficits. Results CBC & Chem 7: 05/18/19 08:24 05/18/19 04:02 Labs: Abnormal Lab Results - Last 24 Hours (Table) 05/18/19 05/18/19 05/18/19 Range/Units 04:02 04:02 04:02 WBC 19.6 H (3.8-10.6) k/uL RBC 2.72 L (3.80-5.40) m/uL Hgb 6.2 L* (11.4-16.0) gm/dL Hct 22.3 L (34.0-46.0) % MCH 22.8 L (25.0-35.0) pg MCHC 27.7 L (31.0-37.0) g/dL RDW 22.2 H (11.5-15.5) % Neutrophils # 15.1 H (1.3-7.7) k/uL PT (9.0-12.0) sec INR (<1.2) Sodium 133 L (137-145) mmol/L Carbon Dioxide 11 L (22-30) mmol/L BUN 24 H (7-17) mg/dL Glucose 336 H (74-99) mg/dL POC Glucose (mg/dL) (75-99) mg/dL Plasma Lactic Acid Alek (0.7-2.0) mmol/L Magnesium 2.5 H (1.6-2.3) mg/dL Alkaline Phosphatase 436 H (38-126) U/L Total Protein 6.1 L (6.3-8.2) g/dL Albumin 2.8 L (3.5-5.0) g/dL Crossmatch See Detail 05/18/19 05/18/19 05/18/19 Range/Units 04:02 04:02 07:59 WBC (3.8-10.6) k/uL RBC (3.80-5.40) m/uL Hgb (11.4-16.0) gm/dL Hct (34.0-46.0) % MCH (25.0-35.0) pg MCHC (31.0-37.0) g/dL RDW (11.5-15.5) % Neutrophils # (1.3-7.7) k/uL PT 12.1 H (9.0-12.0) sec INR 1.2 H (<1.2) Sodium (137-145) mmol/L Carbon Dioxide (22-30) mmol/L BUN (7-17) mg/dL Glucose (74-99) mg/dL POC Glucose (mg/dL) 290 H (75-99) mg/dL Plasma Lactic Acid Alek 14.0 H* (0.7-2.0) mmol/L Magnesium (1.6-2.3) mg/dL Alkaline Phosphatase (38-126) U/L Total Protein (6.3-8.2) g/dL Albumin (3.5-5.0) g/dL Crossmatch 05/18/19 05/18/19 Range/Units 08:18 08:24 WBC 14.0 H (3.8-10.6) k/uL RBC (3.80-5.40) m/uL Hgb 11.1 L D (11.4-16.0) gm/dL Hct (34.0-46.0) % MCH (25.0-35.0) pg MCHC (31.0-37.0) g/dL RDW 18.6 H (11.5-15.5) % Neutrophils # (1.3-7.7) k/uL PT (9.0-12.0) sec INR (<1.2) Sodium (137-145) mmol/L Carbon Dioxide (22-30) mmol/L BUN (7-17) mg/dL Glucose (74-99) mg/dL POC Glucose (mg/dL) (75-99) mg/dL Plasma Lactic Acid Alek 6.5 H* (0.7-2.0) mmol/L Magnesium (1.6-2.3) mg/dL Alkaline Phosphatase (38-126) U/L Total Protein (6.3-8.2) g/dL Albumin (3.5-5.0) g/dL Crossmatch Chest x-ray: report reviewed (Chest x-ray with no acute findings) Assessment and Plan (1) Upper GI bleed Narrative/Plan: 68-year-old female with metastatic pancreatic cancer who presented to the hospital with hematemesis. Does report recent endoscopic evaluation in March at [facility] she was told of a hiatal hernia and peptic ulcer at that time. She reports multiple episodes of gross bleeding. Unclear etiology, may be secondary to peptic ulcer disease, Yamilka-Antonio tear, metastatic malignancy or other etiology. Current Visit: Yes Status: Acute Code(s): K92.2 - GASTROINTESTINAL HEMORRHAGE, UNSPECIFIED SNOMED Code(s): 19388104 (2) Acute blood loss anemia Current Visit: Yes Status: Acute Code(s): D62 - ACUTE POSTHEMORRHAGIC ANEMIA SNOMED Code(s): 821996397 (3) Lactic acidosis Current Visit: Yes Status: Acute Code(s): E87.2 - ACIDOSIS SNOMED Code(s): 09401381 (4) Primary pancreatic cancer with metastasis to other site Current Visit: Yes Status: Acute Code(s): C25.9 - MALIGNANT NEOPLASM OF PANCREAS, UNSPECIFIED SNOMED Code(s): 357007085 Plan: Supportive care Nothing by mouth Continue IV Protonix Continue to monitor hemoglobin and hematocrit and transfuse as needed Appreciate ICU care Hold any anticoagulation at this time Plan for emergent EGD Thank you for allowing us to participate in the care of the patient we will continue to follow
[2019-05-18] MEDS ORDERED: LIDOCAINE 1% INJ 10MG/ML (20 ML MDV) ONE (10:44)
[2019-05-18] MEDS ORDERED: KETAMINE 10 MG/ML 20 ML VIAL ONE (10:44)
[2019-05-18] MEDS ORDERED: PROPOFOL 10 MG/ML 20 ML VIAL IV ONE (10:44)
[2019-05-18] MEDS ORDERED: MIDAZOLAM 2 MG/2 ML VIAL ONE (10:44)
[2019-05-18] MEDS ORDERED: IV FLUID CONTINUATION 1,000 ML IV ONE (10:47)
[2019-05-18] MEDS ORDERED: SODIUM CHLORIDE 0.9% 500 ML 500 ML IV ONE (10:56)
--- NOTE | 2019-05-18 11:35 | P.PCN ---
Date of Procedure: 05/18/19 Description of Procedure: BRIEF HISTORY: 68-year-old female with medical history significant for diabetes mellitus, hypertension, hyperlipidemia and stage IV metastatic pancreatic cancer who presented to the emergency department 2 to vomiting blood and weakness. History has been taken in conversation with the patient and her . Apparently the patient woke up and was nauseated and withdrawn to the floor but was too weak to get up. She subsequently had multiple episodes of gross bright red blood with vomiting. Denies any associated abdominal pain. Does report feeling weak. No prior history of upper GI bleeding, however the patient has had endoscopic evaluation with what the patient describes as endoscopic ultrasound with pancreatic biopsy twice in the past. She states that on the last EUS in March she was told she had a hiatal hernia and ulcer. She denies any antacid therapy. She denies any NSAID use and reports taking Tylenol as needed. The patient underwent liver biopsy for which she describes as 2 masses in her liver. She states that she was supposed started chemotherapy yesterday but decided against it. On presentation to the hospital patient was found to have a hemoglobin of 6.2, the PC 19.6, INR 1.2. The patient received 4 units of PRBCs in the emergency department as well as 2 units of fresh frozen plasma and tranexamic acid. PROCEDURE PERFORMED: Esophagogastroduodenoscopy. PREOPERATIVE DIAGNOSIS: Hematemesis, anemia of acute blood loss, upper GI bleed. ESTIMATED BLOOD LOSS: Minimal. IV sedation per anesthesia. PROCEDURE: After informed consent was obtained, the patient was brought into the endoscopy unit. IV sedation was administered by Anesthesia under continuous monitoring. Initially the Olympus GIF-190 video endoscope was inserted into the mouth. Esophagus intubated without any difficulty. It was gradually advanced into the stomach and duodenum and carefully examined. The bulb and the second part of the duodenum appeared normal, with some old blood noted. The scope at this time was withdrawn to the stomach, adequately insufflated with air, and careful examination, mucosa of the antrum, body, cardia and the fundus was limited due to a large amount of old blood and clots in the entire examined stomach. Copiou s lavage and suction was performed however the stomach was unable to be completely cleared of the clots. A nonbleeding ulcer in the area of what appeared to be the antrum/pylorus just proximal to the duodenum was seen, without any high risk stigmata for rebleeding noted however complete visualization of the ulcer was inhibited by previously mentioned old blood and clots. The scope was then withdrawn into the esophagus. The GE junction was located at 39 cm from the incisors with a small hiatal hernia noted. The esophagus appeared normal. There were no erosions or ulcerations seen and the patient tolerated the procedure well. IMPRESSION: 1. No active bleeding, however large amount of old blood and clots entire examined stomach. 2. Nonbleeding gastric ulcer without high-risk stigmata. RECOMMENDATIONS: The findings of this examination were discussed with the patient and her family. Keep patient nothing by mouth except for ice chips. Continue monitor hemoglobin and hematocrit and transfuse as needed. Continue IV Protonix.
--- NOTE | 2019-05-18 12:56 | P.HPIM ---
History of Present Illness 68-year-old presents female with history of pancreatic cancer metastatic stage IV is on the chemotherapy for last 2 years came in with complaints of significant weakness and generalized and vomiting blood multiple episodes with possible melena. Patient received forms of PRBC transfusion. Her hemoglobin went up from 6.2-11.1, underwent upper GI endoscopy was started on Protonix upper GI endoscopy showed an ulcer which is presently nonradiating with the blood clot syndrome from the area. Patient is bit hyponatremic hypovolemic quite weak and tired. Blood glucose is bit elevated patient used to be diabetic and oral hypoglycemic agents were discontinued because of her loss of weight and blood glucose being under control. Patient received octreotide and antibiotics in ER for possibility of a variceal bleed although no paralysis will be evident on my upper GI endoscopy Review of Systems REVIEW OF SYSTEMS: CONSTITUTIONAL: No fever, no malaise, no fatigue. HEENT: No recent visual problems or hearing problems. Denied any sore throat. CARDIOVASCULAR: No chest pain, orthopnea, PND, no palpitations, no syncope. PULMONARY: No shortness of breath, no cough, no hemoptysis. GASTROINTESTINAL: As mentioned in HPI NEUROLOGICAL: No headaches, no weakness, no numbness. HEMATOLOGICAL: Denies any bleeding or petechiae. GENITOURINARY: Denies any burning micturition, frequency, or urgency. MUSCULOSKELETAL/RHEUMATOLOGICAL: Denies any joint pain, swelling, or any muscle pain. ENDOCRINE: Denies any polyuria or polydipsia. The rest of the 14-point review of systems is negative. Past Medical History Past Medical History: Diabetes Mellitus, GERD/Reflux, Hyperlipidemia, Hypertension, Thyroid Disorder Additional Past Medical History / Comment(s): pancreatitis History of Any Multi-Drug Resistant Organisms: None Reported Past Surgical History: Appendectomy, Cholecystectomy Additional Past Surgical History / Comment(s): cataract surgery - bilateral Past Anesthesia/Blood Transfusion Reactions: No Reported Reaction Past Psychological History: No Psychological Hx Reported Smoking Status: Never smoker Past Alcohol Use History: Rare Past Drug Use History: None Reported - Past Family History Father Family Medical History: Diabetes Mellitus Medications and Allergies Home Medications Medication Instructions Recorded Confirmed Type Acetaminophen Tab [Tylenol Tab] 1,000 mg PO Q6HR PRN 05/18/19 05/18/19 History Morphine Sulfate 15 mg PO Q6H PRN 05/18/19 05/18/19 History Allergies Allergy/AdvReac Type Severity Reaction Status Date / Time Sulfa (Sulfonamide Allergy Rash/Hives Verified 05/18/19 07:42 Antibiotics) Physical Exam Vitals: Vital Signs Temp Pulse Pulse Resp BP BP Pulse Ox 05/18/19 12:00 98.0 F 89 89 20 124/80 98 05/18/19 11:30 124/80 05/18/19 11:10 124/80 05/18/19 11:00 124/80 05/18/19 10:50 124/80 05/18/19 10:40 124/80 05/18/19 10:30 118 H 21 128/91 99 05/18/19 10:20 112 H 36 H 128/91 99 05/18/19 10:10 116 H 25 H 128/91 99 05/18/19 10:00 114 H 20 130/67 99 05/18/19 09:50 114 H 18 130/67 99 05/18/19 09:40 123 H 20 130/67 98 05/18/19 09:30 123 H 14 152/93 98 05/18/19 09:20 131 H 22 152/93 99 05/18/19 09:10 118 H 19 152/93 100 05/18/19 09:00 121 H 15 158/111 99 05/18/19 08:50 115 H 30 H 158/111 98 05/18/19 08:40 89 18 158/111 100 05/18/19 08:30 99 14 168/94 98 05/18/19 08:25 89 14 158/111 97 05/18/19 08:20 100 11 L 168/94 100 05/18/19 08:10 107 H 9 L 168/94 100 05/18/19 08:01 100 05/18/19 07:59 100 05/18/19 06:33 98.1 F 88 20 172/98 100 05/18/19 06:20 98.0 F 101 H 18 157/88 05/18/19 06:04 98.1 F 93 18 169/77 100 05/18/19 05:55 97.7 F 85 16 148/74 100 05/18/19 05:54 97.7 F 101 H 20 154/82 100 05/18/19 05:50 97.5 F L 90 20 148/74 100 05/18/19 05:41 97.6 F 99 18 159/98 100 05/18/19 05:26 97.6 F 103 H 18 140/70 05/18/19 05:20 97.4 F L 105 H 18 144/104 05/18/19 05:11 98.0 F 107 H 20 131/98 05/18/19 05:03 98.1 F 109 H 20 117/76 100 05/18/19 04:52 98.0 F 99 99 18 116/102 116/102 100 05/18/19 04:45 98.1 F 113 H 18 117/75 99 05/18/19 04:20 98.1 F 97 20 113/80 100 05/18/19 04:15 97.1 F L 114 H 20 107/60 100 05/18/19 04:00 128/70 100 05/18/19 03:50 128/70 100 05/18/19 03:46 119 H 22 100 05/18/19 03:40 128/70 05/18/19 03:37 128/70 05/18/19 03:35 97.1 F L 56 L 22 128/70 Intake and Output 05/17/19 05/18/19 05/18/19 22:59 06:59 14:59 Intake Total 1849 825 Output Total 200 Balance 1849 625 Intake: IV 825 Sodium Chloride 0.9% 1, 425 000 ml @ 100 mls/hr IV . Q10H STA Rx#:[id number] Blood Product 1849 Ffp 24 Cpd Unit 308 [id number] Ffp 24 Cpd Unit 301 [id number] Rc As-1 Unit 310 [id number] Rc As-1 Unit 310 [id number] Rc As-1 Unit 310 [id number] Rc Irr As1 Unit 310 [id number] Output: Urine 200 Other: Weight 49.895 kg PHYSICAL EXAMINATION: GENERAL: The patient is alert and oriented x3, not in any acute distress. Thin built patient does look pale lethargic. HEENT: Pupils are round and equally reacting to light. EOMI. No scleral icterus. No conjunctival pallor. Normocephalic, atraumatic. No pharyngeal erythema. No thyromegaly. CARDIOVASCULAR: S1 and S2 present. No murmurs, rubs, or gallops. PULMONARY: Chest is clear to auscultation, no wheezing or crackles. ABDOMEN: Soft, nontender, nondistended, normoactive bowel sounds. No palpable organomegaly. MUSCULOSKELETAL: No joint swelling or deformity. EXTREMITIES: No cyanosis, clubbing, or pedal edema. NEUROLOGICAL: Gross neurological examination did not reveal any focal deficits. SKIN: No rashes. Results CBC & Chem 7: 05/18/19 08:24 05/18/19 04:02 Labs: Abnormal Lab Results - Last 24 Hours (Table) 05/18/19 05/18/19 05/18/19 Range/Units 04:02 04:02 04:02 WBC 19.6 H (3.8-10.6) k/uL RBC 2.72 L (3.80-5.40) m/uL Hgb 6.2 L* (11.4-16.0) gm/dL Hct 22.3 L (34.0-46.0) % MCH 22.8 L (25.0-35.0) pg MCHC 27.7 L (31.0-37.0) g/dL RDW 22.2 H (11.5-15.5) % Neutrophils # 15.1 H (1.3-7.7) k/uL PT (9.0-12.0) sec INR (<1.2) Sodium 133 L (137-145) mmol/L Carbon Dioxide 11 L (22-30) mmol/L BUN 24 H (7-17) mg/dL Glucose 336 H (74-99) mg/dL POC Glucose (mg/dL) (75-99) mg/dL Plasma Lactic Acid Alek (0.7-2.0) mmol/L Magnesium 2.5 H (1.6-2.3) mg/dL Alkaline Phosphatase 436 H (38-126) U/L Total Protein 6.1 L (6.3-8.2) g/dL Albumin 2.8 L (3.5-5.0) g/dL Crossmatch See Detail 05/18/19 05/18/19 05/18/19 Range/Units 04:02 04:02 07:59 WBC (3.8-10.6) k/uL RBC (3.80-5.40) m/uL Hgb (11.4-16.0) gm/dL Hct (34.0-46.0) % MCH (25.0-35.0) pg MCHC (31.0-37.0) g/dL RDW (11.5-15.5) % Neutrophils # (1.3-7.7) k/uL PT 12.1 H (9.0-12.0) sec INR 1.2 H (<1.2) Sodium (137-145) mmol/L Carbon Dioxide (22-30) mmol/L BUN (7-17) mg/dL Glucose (74-99) mg/dL POC Glucose (mg/dL) 290 H (75-99) mg/dL Plasma Lactic Acid Alek 14.0 H* (0.7-2.0) mmol/L Magnesium (1.6-2.3) mg/dL Alkaline Phosphatase (38-126) U/L Total Protein (6.3-8.2) g/dL Albumin (3.5-5.0) g/dL Crossmatch 05/18/19 05/18/19 05/18/19 Range/Units 08:18 08:24 12:19 WBC 14.0 H (3.8-10.6) k/uL RBC (3.80-5.40) m/uL Hgb 11.1 L D (11.4-16.0) gm/dL Hct (34.0-46.0) % MCH (25.0-35.0) pg MCHC (31.0-37.0) g/dL RDW 18.6 H (11.5-15.5) % Neutrophils # (1.3-7.7) k/uL PT (9.0-12.0) sec INR (<1.2) Sodium (137-145) mmol/L Carbon Dioxide (22-30) mmol/L BUN (7-17) mg/dL Glucose (74-99) mg/dL POC Glucose (mg/dL) (75-99) mg/dL Plasma Lactic Acid Alek 6.5 H* 2.7 H* (0.7-2.0) mmol/L Magnesium (1.6-2.3) mg/dL Alkaline Phosphatase (38-126) U/L Total Protein (6.3-8.2) g/dL Albumin (3.5-5.0) g/dL Crossmatch Thrombosis Risk Factor Assmnt - Choose All That Apply Any of the Below Risk Factors Present?: Yes Each Factor Represents 1 point: Medical pt on bed rest Other Risk Factors: Yes Each Risk Factor Represents 2 Points: Age 61-74 years, Central venous access Other congenital or acquired thrombophilia - If yes, enter type in comment: No Thrombosis Risk Factor Assessment Total Risk Factor Score: 5 Thrombosis Risk Factor Assessment Level: High Risk Assessment and Plan Plan: -Acute blood loss anemia from upper GI bleed and peptic ulcer disease, patient will be continued on Protonix upper GI endoscopy as mentioned above no evidence of varices continue with IV fluids. Received 4 units of PRBC transfusion. -Hypovolemic hyponatremia expected to improve with IV fluids IV fluids will be continued -Patient does have back pain which is secondary to pancreatic cancer pain management with the opiates medications avoid nonsteroidal anti-inflammatories and use Tylenol as well. -Leukocytosis reactive secondary to GI bleed -Tachycardia secondary to GI bleed elevated blood sugars with the type 2 diabetes mellitus diet-controlled will monitor blood sugars Will use sliding scale insulin. -Lactic acidosis secondary to severe intravascular depletion from dehydration and GI bleed. Continue with IV fluids
[2019-05-18] MEDS ORDERED: SODIUM CHLORIDE 0.9% 1,000 ML IV ONE (14:26)
--- NOTE | 2019-05-18 14:49 | P.CONS ---
History of Present Illness - Reason for Consult Consult date: 05/18/19 UGI bleed, symptomatic anemia, met pancreatic ca - History of Present Illness Ms Garces is a pleasant white female, with generally minor medical problems and good baseline health status. She had presented 08/06 complaining of some upper abdominal discomfort, diminished appetite and weight loss of about 40 pounds over the prior [address] of the abdomen and pelvis on 08/11/17 showed an abnormal appearing pancreas with a complex cystic collection involving the pancreatic body and neck. This appeared to be communicating with the posterior wall of the stomach. This was noted to measure 7.6 x 5.4 x 6.6 cm. The patient was seen by Dr. Catalan at the time, and referred to [facility] for further workup. She had an initial EUS on 10/22/17 which confirmed commmunication between the cystic mass in the duodenum. The cyst wall was noted to have a soft tissue component measuring 6.3 x 5.2 cm. FNA was obtained, and was suspicious for malignancy but not diagnostic. She underwent a repeat EUS on 11/04/17 with FNA now positive for adenocarcinoma. She had a CT of the chest abdomen and pelvis which did not show any obvious metastatic disease. She also had stent placement for the fistula. The patient then underwent chemoradiation with Xeloda, completing that in late 01/05. He was then seen by oncology, Dr. Dickinson. CT scan of the chest abdomen and pelvis on 02/01/18 again showed a 6.7 x 4.1 cm lesion in the pancreas with septations and cystic components and a pigtail catheter present from stent. Portal confluence were markedly narrowed by the lesion, including proximal SMV proximal IM and splenic vein. It was recommended that she have additional chemotherapy to try to down stage her for possible resection. 6 cycles of FOLFIRINOX were recommended. The patient wanted to have her chemotherapy locally, and was therefore referred here. She denied any prior history of malignancy. She is s/p 8 cycles, starting those on 03/02/18 She followed up at [facility] on 06/07/18, after C 6, and her case was discussed at their MDC. Continuation of chemo, with reassessment in early 08/07 was recommended. Dose was reduced by 10% for all drugs with C7. She had repeat Ct scans and visit at [facility] in 08/07. She was still not felt to be a surgical candidate. Based on my discussion with Oncology at [facility], it was recommended that she have a treatment break with reassessment in 10/08. She was seen at [facility] in 09/06. MRI and PET indicated stable disease at primary site, with possibility of sub cm omental metastases. Change of chemo to [place]/Abraxane was recommended. She started the new regimen on 10/11/18, and is s/p 4 cycles. She was seen at the [facility] on 01/05/19. 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 It was felt that she would not be resectable. Due to increasing toxicity despite dose reduction, the patient had a treatment break after 02/14/19. She then developed progressive symptoms of discomfort, and decrease in appetite since early 05/08 and followed up in hospital. Imaging showed definite progression of disease. It was recommended that she start back on chemotherapy with 5-FU and liposomal IV irinotecan. She opted to have the treatment locally and was supposed to start chemotherapy on 05/17/19 The patient states that she cannot keep that appointment as she was not feeling well. She reported black stools and passage of dark red blood in her stools yesterday associated with progressive weakness and shortness of breath on exertion. She therefore came into the emergency room and was found to have a hemoglobin in the 6 range. She subsequently had episodes of vomiting of blood, with the last one early this a.m. She was transferred to the ICU and seen by gastroenterology. Consult was placed for further evaluation and recommendations Review of Systems Constitutional: Reports chronic pain, Reports fatigue, Reports poor appetite, Reports weakness, Reports weight loss Eyes: denies blurred vision, denies pain Ears: deny: decreased hearing, ear discharge, earache, tinnitus Ears, nose, mouth and throat: Denies headache, Denies sore throat Cardiovascular: Reports dyspnea on exertion Respiratory: Reports dyspnea Gastrointestinal: Reports abdominal pain, Reports hematemesis, Reports melena Genitourinary: Denies dysuria, Denies hematuria Menstruation: Reports postmenopausal Musculoskeletal: Reports muscle weakness Integumentary: Denies pruritus, Denies rash Neurological: Reports weakness Psychiatric: Denies anxiety, Denies depression Endocrine: Reports fatigue, Reports weight change Hematologic/Lymphatic: Reports as per HPI Past Medical History Past Medical History: Diabetes Mellitus, GERD/Reflux, Hyperlipidemia, Hypertension, Thyroid Disorder Additional Past Medical History / Comment(s): pancreatitis History of Any Multi-Drug Resistant Organisms: None Reported Past Surgical History: Appendectomy, Cholecystectomy Additional Past Surgical History / Comment(s): cataract surgery - bilateral Past Anesthesia/Blood Transfusion Reactions: No Reported Reaction Past Psychological History: No Psychological Hx Reported Smoking Status: Never smoker Past Alcohol Use History: Rare Past Drug Use History: None Reported - Past Family History Father Family Medical History: Diabetes Mellitus Medications and Allergies Home Medications Medication Instructions Recorded Confirmed Type Acetaminophen Tab [Tylenol Tab] 1,000 mg PO Q6HR PRN 05/18/19 05/18/19 History Morphine Sulfate 15 mg PO Q6H PRN 05/18/19 05/18/19 History Allergies Allergy/AdvReac Type Severity Reaction Status Date / Time Sulfa (Sulfonamide Allergy Rash/Hives Verified 05/18/19 07:42 Antibiotics) Physical Exam Vitals: Vital Signs Temp Pulse Pulse Resp BP BP Pulse Ox 05/18/19 13:00 82 20 128/70 98 05/18/19 12:30 82 20 126/65 98 05/18/19 12:00 98.0 F 89 89 20 124/80 98 05/18/19 11:30 124/80 05/18/19 11:10 124/80 05/18/19 11:00 124/80 05/18/19 10:50 124/80 05/18/19 10:40 124/80 05/18/19 10:30 118 H 21 128/91 99 05/18/19 10:20 112 H 36 H 128/91 99 05/18/19 10:10 116 H 25 H 128/91 99 05/18/19 10:00 114 H 20 130/67 99 05/18/19 09:50 114 H 18 130/67 99 05/18/19 09:40 123 H 20 130/67 98 05/18/19 09:30 123 H 14 152/93 98 05/18/19 09:20 131 H 22 152/93 99 05/18/19 09:10 118 H 19 152/93 100 05/18/19 09:00 121 H 15 158/111 99 05/18/19 08:50 115 H 30 H 158/111 98 05/18/19 08:40 89 18 158/111 100 05/18/19 08:30 99 14 168/94 98 05/18/19 08:25 89 14 158/111 97 05/18/19 08:20 100 11 L 168/94 100 05/18/19 08:10 107 H 9 L 168/94 100 05/18/19 08:01 100 05/18/19 07:59 100 05/18/19 06:33 98.1 F 88 20 172/98 100 05/18/19 06:20 98.0 F 101 H 18 157/88 05/18/19 06:04 98.1 F 93 18 169/77 100 05/18/19 05:55 97.7 F 85 16 148/74 100 05/18/19 05:54 97.7 F 101 H 20 154/82 100 05/18/19 05:50 97.5 F L 90 20 148/74 100 05/18/19 05:41 97.6 F 99 18 159/98 100 05/18/19 05:26 97.6 F 103 H 18 140/70 05/18/19 05:20 97.4 F L 105 H 18 144/104 05/18/19 05:11 98.0 F 107 H 20 131/98 05/18/19 05:03 98.1 F 109 H 20 117/76 100 05/18/19 04:52 98.0 F 99 99 18 116/102 116/102 100 05/18/19 04:45 98.1 F 113 H 18 117/75 99 05/18/19 04:20 98.1 F 97 20 113/80 100 05/18/19 04:15 97.1 F L 114 H 20 107/60 100 05/18/19 04:00 128/70 100 05/18/19 03:50 128/70 100 05/18/19 03:46 119 H 22 100 05/18/19 03:40 128/70 05/18/19 03:37 128/70 05/18/19 03:35 97.1 F L 56 L 22 128/70 Intake and Output 05/17/19 05/18/19 05/18/19 22:59 06:59 14:59 Intake Total 1849 925 Output Total 215 Balance 1849 710 Intake: IV 925 Sodium Chloride 0.9% 1, 525 000 ml @ 100 mls/hr IV . Q10H STA Rx#:[id number] Blood Product 1849 Ffp 24 Cpd Unit 308 [id number] Ffp 24 Cpd Unit 301 [id number] Rc As-1 Unit 310 [id number] Rc As-1 Unit 310 [id number] Rc As-1 Unit 310 [id number] Rc Irr As1 Unit 310 [id number] Output: Urine 215 Other: Weight 49.895 kg - Constitutional Marked generalized weakness General appearance: no acute distress - EENT Eyes: EOMI, PERRLA - Neck Neck: no lymphadenopathy Thyroid: bilateral: normal size - Respiratory Respiratory: bilateral: CTA - Cardiovascular Rhythm: regular Heart sounds: normal: S1, S2 - Gastrointestinal General gastrointestinal: normal bowel sounds, soft - Integumentary Integumentary: normal - Neurologic Neurologic: CNII-XII intact - Musculoskeletal Musculoskeletal: generalized weakness, strength equal bilaterally - Psychiatric Psychiatric: A&O x's 3, appropriate affect Results CBC & Chem 7: 05/18/19 08:24 05/18/19 04:02 Labs: Abnormal Lab Results - Last 24 Hours (Table) 05/18/19 05/18/19 05/18/19 Range/Units 04:02 04:02 04:02 WBC 19.6 H (3.8-10.6) k/uL RBC 2.72 L (3.80-5.40) m/uL Hgb 6.2 L* (11.4-16.0) gm/dL Hct 22.3 L (34.0-46.0) % MCH 22.8 L (25.0-35.0) pg MCHC 27.7 L (31.0-37.0) g/dL RDW 22.2 H (11.5-15.5) % Neutrophils # 15.1 H (1.3-7.7) k/uL PT (9.0-12.0) sec INR (<1.2) Sodium 133 L (137-145) mmol/L Carbon Dioxide 11 L (22-30) mmol/L BUN 24 H (7-17) mg/dL Glucose 336 H (74-99) mg/dL POC Glucose (mg/dL) (75-99) mg/dL Plasma Lactic Acid Alek (0.7-2.0) mmol/L Magnesium 2.5 H (1.6-2.3) mg/dL Alkaline Phosphatase 436 H (38-126) U/L Total Protein 6.1 L (6.3-8.2) g/dL Albumin 2.8 L (3.5-5.0) g/dL Crossmatch See Detail 05/18/19 05/18/19 05/18/19 Range/Units 04:02 04:02 07:59 WBC (3.8-10.6) k/uL RBC (3.80-5.40) m/uL Hgb (11.4-16.0) gm/dL Hct (34.0-46.0) % MCH (25.0-35.0) pg MCHC (31.0-37.0) g/dL RDW (11.5-15.5) % Neutrophils # (1.3-7.7) k/uL PT 12.1 H (9.0-12.0) sec INR 1.2 H (<1.2) Sodium (137-145) mmol/L Carbon Dioxide (22-30) mmol/L BUN (7-17) mg/dL Glucose (74-99) mg/dL POC Glucose (mg/dL) 290 H (75-99) mg/dL Plasma Lactic Acid Alek 14.0 H* (0.7-2.0) mmol/L Magnesium (1.6-2.3) mg/dL Alkaline Phosphatase (38-126) U/L Total Protein (6.3-8.2) g/dL Albumin (3.5-5.0) g/dL Crossmatch 05/18/19 05/18/19 05/18/19 Range/Units 08:18 08:24 12:19 WBC 14.0 H (3.8-10.6) k/uL RBC (3.80-5.40) m/uL Hgb 11.1 L D (11.4-16.0) gm/dL Hct (34.0-46.0) % MCH (25.0-35.0) pg MCHC (31.0-37.0) g/dL RDW 18.6 H (11.5-15.5) % Neutrophils # (1.3-7.7) k/uL PT (9.0-12.0) sec INR (<1.2) Sodium (137-145) mmol/L Carbon Dioxide (22-30) mmol/L BUN (7-17) mg/dL Glucose (74-99) mg/dL POC Glucose (mg/dL) (75-99) mg/dL Plasma Lactic Acid Alek 6.5 H* 2.7 H* (0.7-2.0) mmol/L Magnesium (1.6-2.3) mg/dL Alkaline Phosphatase (38-126) U/L Total Protein (6.3-8.2) g/dL Albumin (3.5-5.0) g/dL Crossmatch Chest x-ray: report reviewed Assessment and Plan (1) Acute blood loss anemia Narrative/Plan: The patient had presented with acute blood loss anemia that appears to be from an upper GI bleed. Hemoglobin had dropped into the 6 range, along with unstable hemodynamics. At this time blood pressure is in the normal range though heart rate is still elevated. Patient has received blood transfusion. Await repeat CBC. She has not had obvious recurrent bleeding over the past several hours. Continue to monitor closely and transfuse to keep hemoglobin greater than 7 Current Visit: Yes Status: Acute Code(s): D62 - ACUTE POSTHEMORRHAGIC ANEMIA SNOMED Code(s): 849016623 (2) Upper GI bleed Narrative/Plan: The patient is presenting with a large volume GI bleed causing significant anemia and associated symptoms. The possibilities were discussed in detail with the family and the patient. She was advised that the etiology could be benign, such as ulcer or vascular malformation, versus related directly to her malignancy (invasion of tumor into the bowel lumen). She will need an EGD for further workup. She has been seen by GI and this has been recommended. I e xpected to the family that I totally agree with this recommendation. They were advised that in case of a benign source, this could potentially even be treatable endoscopically. However of this is due to tumor invasion, and this could be a more difficult condition to treat. In that case really the only option would be local radiation if possible. She was also advised even if etiology is benign, and there is progressive bleeding to where major surgical intervention would be required, she would be a poor candidate for the same because of her current performance status and progressive malignancy. They expressed understanding of the same. Await results of EGD Current Visit: Yes Status: Acute Code(s): K92.2 - GASTROINTESTINAL HEMORRHAGE, UNSPECIFIED SNOMED Code(s): 87341519 (3) Primary pancreatic cancer with metastasis to other site Narrative/Plan: Diagnostic and therapeutic circumstances as described. The patient is aware that her cancer is metastatic and unresectable. The objective of treatment is prolonged duration of life and palliation of symptoms chemotherapy will be on hold until acute situation sufficiently stabilizes. Current Visit: Yes Status: Acute Code(s): C25.9 - MALIGNANT NEOPLASM OF PANCREAS, UNSPECIFIED SNOMED Code(s): 893887751
[2019-05-18] MEDS: SODIUM CHLORIDE 0.9% 1,000 ML IV SCH (16:48)
[2019-05-18] MEDS: ONDANSETRON 4 MG/2 ML VIAL IVP PRN (18:12)
[2019-05-18 18:15] LABS: Glucose,Whole Blood 160 mg/dL (75-99)
[2019-05-18] MEDS: INSULIN ASPART (NovoLOG) 100 UNIT/ML VIAL SQ SCH (18:17)
[2019-05-18 19:27] LABS: Anisocytosis Slight; HCT 26.7 % (34.0-46.0); Hypochromasia Moderate; MCH 27.9 pg (25.0-35.0); MCHC 32.7 g/dL (31.0-37.0); MCV 85.3 fL (80.0-100.0); Mean Platelet Volume 9.3; Microcytosis Slight; Platelet Count 134 k/uL (150-450); Poikilocytosis Moderate; RBC 3.13 m/uL (3.80-5.40); RDW 19.3 % (11.5-15.5); WBC 15.7 k/uL (3.8-10.6)
[2019-05-18 19:41] LABS: HGB 8.8 gm/dL (11.4-16.0)
[2019-05-19 00:07] LABS: Glucose,Whole Blood 113 mg/dL (75-99)
[2019-05-19] MEDS: ONDANSETRON 4 MG/2 ML VIAL IVP PRN ×4 (00:12→20:30)
[2019-05-19] MEDS: INSULIN ASPART (NovoLOG) 100 UNIT/ML VIAL SQ SCH ×4 (00:13→20:25)
[2019-05-19] MEDS: SODIUM CHLORIDE 0.9% 1,000 ML IV SCH ×3 (00:13→17:08)
[2019-05-19 00:33] LABS: Anisocytosis Slight; HCT 24.4 % (34.0-46.0); HGB 8.1 gm/dL (11.4-16.0); Hypochromasia Moderate; MCH 28.2 pg (25.0-35.0); MCHC 33.3 g/dL (31.0-37.0); MCV 84.9 fL (80.0-100.0); Mean Platelet Volume 9.6; Microcytosis Slight; Platelet Count 129 k/uL (150-450); Poikilocytosis Moderate; RBC 2.87 m/uL (3.80-5.40); RDW 19.5 % (11.5-15.5); WBC 19.3 k/uL (3.8-10.6)
[2019-05-19] MEDS: MORPHINE SULFATE 4 MG/ML SYRINGE IV PRN (03:17)
[2019-05-19 05:35] LABS: Glucose,Whole Blood 129 mg/dL (75-99)
[2019-05-19] MEDS: HYDROmorphone 1 MG/ML 1 ML SYRINGE IVP PRN ×2 (05:51→12:29)
[2019-05-19 05:58] LABS: Anisocytosis Slight; HGB 7.7 gm/dL (11.4-16.0); Hypochromasia Moderate; MCH 27.4 pg (25.0-35.0); MCV 85.5 fL (80.0-100.0); Mean Platelet Volume 10.1; Microcytosis Slight; Platelet Count 119 k/uL (150-450); Poikilocytosis Moderate; RBC 2.81 m/uL (3.80-5.40); RDW 19.8 % (11.5-15.5)
[2019-05-19 06:06] LABS: African American GFR (CKD) >90 (>60 ml/min/1.73 sqM); Anion Gap 3 mmol/L; Blood Urea Nitrogen 28 mg/dL (7-17); Calcium 7.6 mg/dL (8.4-10.2); Carbon Dioxide 27 mmol/L (22-30); Chloride 110 mmol/L (98-107); Glucose 121 mg/dL (74-99); Potassium 3.9 mmol/L (3.5-5.1); Sodium 140 mmol/L (137-145)
[2019-05-19] MEDS ORDERED: Potassium Replacement Protocol 1 EACH MISC MISCELLANE PRN (06:47)
[2019-05-19] MEDS: POTASSIUM CHLORIDE 10 MEQ in WATER FOR INJECTION 1 100ML.BAG IVPB SCH ×2 (08:22→12:29)
[2019-05-19] MEDS: PANTOPRAZOLE 40 MG/10 ML VIAL IVP SCH ×2 (08:22→20:25)
--- NOTE | 2019-05-19 08:59 | P.PN ---
Subjective Progress Note Date: 05/19/19 Principal diagnosis: GI bleed anemia On 05/19/2019 patient seen in follow-up in the intensive care unit, patient we can alert, no episodes of intermittent emesis since yesterday, today's hemoglobin is 7.7 and patient is receiving another unit of packed red blood cells for a total of 5 units of packed red blood cells, and 2 units of fresh frozen plasma, patient underwent EGD yesterday and nonbleeding gastric ulcer without high risk stigmata, and there was no active bleeding however large amount of old blood and clots in the entire stomach was noted. She remains nothing by mouth, she denies any nausea, denies any abdominal pain, continues on PPI therapy. She has been seen by oncology services, and apparently patient did receive treatment for her pancreatic cancer with her last treatment in January 2019 since then she has decided not to receive any more treatment, she was considering palliative hospice care, but is unsure if she was ready for that. She is clinically stable. Objective - Vital Signs Vital signs: Vital Signs Temp 99.5 F 05/19/19 08:31 Pulse 114 H 05/19/19 08:31 Resp 16 05/19/19 08:31 BP 140/71 05/19/19 08:31 Pulse Ox 96 05/19/19 08:31 Intake & Output 05/18/19 05/19/19 05/19/19 18:59 06:59 18:59 Intake Total 2425 1300 100 Output Total 395 685 60 Balance 2029 615 40 Weight 52.7 kg Intake: IV 2425 1300 100 Sodium Chloride 0.9% 2024 1300 100 000 ml @ 100 mls/hr IV . Q10H [facility] Rx#:[id number] Blood Product 0 Rc As-1 Unit 0 [id number] Output: Urine 395 685 60 Other: Voiding Method Indwelling Catheter Indwelling Catheter - Exam GENERAL EXAM: Alert, very pleasant, slightly pale, thin 68-year-old white female in no acute distress HEAD: Normocephalic/atraumatic. EYES: Normal reaction of pupils, equal size. Conjunctiva pink, sclera white. NOSE: Clear with pink turbinates. THROAT: No erythema or exudates. NECK: No masses, no JVD, no thyroid enlargement, no adenopathy. CHEST: No chest wall deformity. Symmetrical expansion. LUNGS: Equal air entry with no crackles, wheeze, rhonchi or dullness. CVS: Regular rate and rhythm, normal S1 and S2, no gallops, no murmurs, no rubs ABDOMEN: Soft, nontender. No hepatosplenomegaly, normal bowel sounds, no guarding or rigidity. EXTREMITIES: No clubbing, no edema, no cyanosis, 2+ pulses and upper and lower extremities. MUSCULOSKELETAL: Muscle strength and tone normal. SPINE: No scoliosis or deformity SKIN: No rashes CENTRAL NERVOUS SYSTEM: Alert and oriented -3. No focal deficits, tone is normal in all 4 extremities. PSYCHIATRIC: Alert and oriented -3. Appropriate affect. Intact judgment and insight. - Labs CBC & Chem 7: 05/19/19 05:35 05/19/19 05:35 Labs: Abnormal Lab Results - Last 24 Hours (Table) 05/18/19 05/18/19 05/18/19 Range/Units 04:02 08:18 08:24 WBC 14.0 H (3.8-10.6) k/uL RBC (3.80-5.40) m/uL Hgb 11.1 L D (11.4-16.0) gm/dL Hct (34.0-46.0) % RDW 18.6 H (11.5-15.5) % Plt Count (150-450) k/uL Chloride (98-107) mmol/L BUN (7-17) mg/dL Glucose (74-99) mg/dL POC Glucose (mg/dL) (75-99) mg/dL Plasma Lactic Acid Alek 6.5 H* (0.7-2.0) mmol/L Calcium (8.4-10.2) mg/dL Crossmatch See Detail 05/18/19 05/18/19 05/18/19 Range/Units 12:19 18:14 19:05 WBC 15.7 H (3.8-10.6) k/uL RBC 3.13 L (3.80-5.40) m/uL Hgb 8.8 L D (11.4-16.0) gm/dL Hct 26.7 L (34.0-46.0) % RDW 19.3 H (11.5-15.5) % Plt Count 134 L (150-450) k/uL Chloride (98-107) mmol/L BUN (7-17) mg/dL Glucose (74-99) mg/dL POC Glucose (mg/dL) 160 H (75-99) mg/dL Plasma Lactic Acid Alek 2.7 H* (0.7-2.0) mmol/L Calcium (8.4-10.2) mg/dL Crossmatch 05/19/19 05/19/19 05/19/19 Range/Units 00:05 00:10 05:34 WBC 19.3 H (3.8-10.6) k/uL RBC 2.87 L (3.80-5.40) m/uL Hgb 8.1 L (11.4-16.0) gm/dL Hct 24.4 L (34.0-46.0) % RDW 19.5 H (11.5-15.5) % Plt Count 129 L (150-450) k/uL Chloride (98-107) mmol/L BUN (7-17) mg/dL Glucose (74-99) mg/dL POC Glucose (mg/dL) 113 H 129 H (75-99) mg/dL Plasma Lactic Acid Alek (0.7-2.0) mmol/L Calcium (8.4-10.2) mg/dL Crossmatch 05/19/19 05/19/19 Range/Units 05:35 05:35 WBC 22.0 H (3.8-10.6) k/uL RBC 2.81 L (3.80-5.40) m/uL Hgb 7.7 L (11.4-16.0) gm/dL Hct 24.0 L (34.0-46.0) % RDW 19.8 H (11.5-15.5) % Plt Count 119 L (150-450) k/uL Chloride 110 H (98-107) mmol/L BUN 28 H (7-17) mg/dL Glucose 121 H (74-99) mg/dL POC Glucose (mg/dL) (75-99) mg/dL Plasma Lactic Acid Alek (0.7-2.0) mmol/L Calcium 7.6 L (8.4-10.2) mg/dL Crossmatch Assessment and Plan Plan: Assessment: #1. Acute GI bleeding, hematemesis, and acute GI blood loss anemia patient came in with a hemoglobin of 6.2, has been transfused with 4 units of packed red blood cells and 2 units of fresh frozen plasma #2. Stage IV pancreatic cancer #3. Acute lactic acidosis, related to GI bleeding, not related to sepsis #4. Diabetes mellitus #5. GERD/reflux #6. Lifetime nonsmoker #7. History of a thyroid nodule, with benign biopsy #8. History of cataract Plan: Continue current medical treatment, patient is being transfused with 1 unit of blood, no active bleeding since yesterday, hemoglobin is 7.7 this morning, hemodynamically stable, continue with IV fluids, remains nothing by mouth, will defer to GI service as far as progressing patient's diet. We'll consult hospice to have them come and speak to the patient patient is considering palliative/hospice care, she may not be ready for it, but she may discuss any questions she may have with the hospice regarding resources and services. I performed a history & physical examination of the patient and discussed their management with my nurse practitioner, Salena Phillip. I reviewed the nurse practitioner's note and agree with the documented findings and plan of care. Lung sounds are positive for clear. The findings and the impression was discussed with the patient. I attest to the documentation by the nurse practitioner. Time with Patient: Less than 30
[2019-05-19 11:50] VITALS: BMI 17.6
--- NOTE | 2019-05-19 12:16 | P.PN ---
Subjective Progress Note Date: 05/19/19 Principal diagnosis: Hematemesis pancreatic cancer Status post EGD yesterday for evaluation of hematemesis with evidence of a nonbleeding gastric ulcer without Heiss risk stigmata. Since EGD no episodes of hematemesis or hematochezia. Hemodynamically stable. Hemoglobin 7.7 today. No abdominal complaints. Patient states she feels better. Objective - Vital Signs Vital signs: Vital Signs Temp 99.1 F 05/19/19 10:25 Pulse 105 H 05/19/19 11:00 Resp 17 05/19/19 11:00 BP 147/74 05/19/19 11:00 Pulse Ox 96 05/19/19 11:00 Intake & Output 05/18/19 05/19/19 05/19/19 18:59 06:59 18:59 Intake Total 2425 1300 400 Output Total 395 685 215 Balance 2029 615 185 Weight 52.7 kg 52.7 kg Intake: IV 2425 1300 400 Sodium Chloride 0.9% 2024 1300 400 000 ml @ 100 mls/hr IV . Q10H [facility] Rx#:[id number] Blood Product 0 Rc As-1 Unit 0 [id number] Output: Urine 395 685 215 Other: Voiding Method Indwelling Catheter Indwelling Catheter Indwelling Catheter - Exam General appearance: The patient is alert, oriented, in no acute distress. HET: Head is normocephalic and atraumatic. Pupils are equal and reactive. Oropharynx is clear without lesions. Neck: Supple without lymphadenopathy. Trachea midline. Heart: S1 S2. Regular rate and rhythm. Lungs: No crackles or wheezes are heard. Abdomen: Soft, nontender, nondistended with bowel sounds. No peritoneal signs. No palpable organomegaly or masses. Extremities: Normal skin color and turgor. No cyanosis, rash, ulceration, clubbing, or edema. Radial and pedal pulses are 2/4 bilaterally. Neurological: No focal deficits. Strength and sensation are grossly intact. - Labs CBC & Chem 7: 05/19/19 05:35 05/19/19 05:35 Labs: Abnormal Lab Results - Last 24 Hours (Table) 05/18/19 05/18/19 05/18/19 Range/Units 04:02 12: 18:14 WBC (3.8-10.6) k/uL RBC (3.80-5.40) m/uL Hgb (11.4-16.0) gm/dL Hct (34.0-46.0) % RDW (11.5-15.5) % Plt Count (150-450) k/uL Chloride (98-107) mmol/L BUN (7-17) mg/dL Glucose (74-99) mg/dL POC Glucose (mg/dL) 160 H (75-99) mg/dL Plasma Lactic Acid Alek 2.7 H* (0.7-2.0) mmol/L Calcium (8.4-10.2) mg/dL Crossmatch See Detail 05/18/19 05/19/19 05/19/19 Range/Units 19:05 00:05 00:10 WBC 15.7 H 19.3 H (3.8-10.6) k/uL RBC 3.13 L 2.87 L (3.80-5.40) m/uL Hgb 8.8 L D 8.1 L (11.4-16.0) gm/dL Hct 26.7 L 24.4 L (34.0-46.0) % RDW 19.3 H 19.5 H (11.5-15.5) % Plt Count 134 L 129 L (150-450) k/uL Chloride (98-107) mmol/L BUN (7-17) mg/dL Glucose (74-99) mg/dL POC Glucose (mg/dL) 113 H (75-99) mg/dL Plasma Lactic Acid Alek (0.7-2.0) mmol/L Calcium (8.4-10.2) mg/dL Crossmatch 05/19/19 05/19/19 05/19/19 Range/Units 05:34 05:35 05:35 WBC 22.0 H (3.8-10.6) k/uL RBC 2.81 L (3.80-5.40) m/uL Hgb 7.7 L (11.4-16.0) gm/dL Hct 24.0 L (34.0-46.0) % RDW 19.8 H (11.5-15.5) % Plt Count 119 L (150-450) k/uL Chloride 110 H (98-107) mmol/L BUN 28 H (7-17) mg/dL Glucose 121 H (74-99) mg/dL POC Glucose (mg/dL) 129 H (75-99) mg/dL Plasma Lactic Acid Alek (0.7-2.0) mmol/L Calcium 7.6 L (8.4-10.2) mg/dL Crossmatch Assessment and Plan (1) Gastric ulcer Current Visit: Yes Status: Acute Code(s): K25.9 - GASTRIC ULCER, UNSP ACUTE OR CHRONIC, W/O HEMOR OR PERF SNOMED Code(s): 626593694 (2) Acute upper GI bleed Current Visit: Yes Status: Acute Code(s): K92.2 - GASTROINTESTINAL HEMORRHAGE, UNSPECIFIED SNOMED Code(s): 32429653 (3) Primary pancreatic cancer with metastasis to other site Current Visit: Yes Status: Acute Code(s): C25.9 - MALIGNANT NEOPLASM OF PANCREAS, UNSPECIFIED SNOMED Code(s): 809328233 (4) Acute blood loss anemia Current Visit: Yes Status: Acute Code(s): D62 - ACUTE POSTHEMORRHAGIC ANEMIA SNOMED Code(s): 353704809 Plan: 1. Possible hospice consideration. At this time patient appears stable no plans for endoscopy. 2. Protonix 40 mg IV twice daily. 3. Nothing by mouth except medications ice chips popsicles with slow advancement. 4. Agreeable for discharge if patient/family is agreeable to proceed with hospice care. Assessment and plan a care discussed with Dr. Mcgee
[2019-05-19 12:38] LABS: Glucose,Whole Blood 128 mg/dL (75-99)
--- NOTE | 2019-05-19 13:11 | P.DS ---
Providers Date of admission: 05/18/19 05:14 Attending physician: Pedro Burks Consults: 05/18/19 05:14 Consult Physician Stat Consulting Provider: Aaron Mccall Consult Reason/Comments: ICU mgmt Do you want consulting provider notified?: Already Contacted 05/18/19 05:15 Consult Physician Routine Consulting Provider: Edgardo Zamora Consult Reason/Comments: extablished patient Do you want consulting provider notified?: Yes, Notify in am Consult Physician Urgent Consulting Provider: Vidal Mera Consult Reason/Comments: upper GIB Do you want consulting provider notified?: Yes Primary care physician: [facility] Course: 68-year-old presents female with history of pancreatic cancer metastatic stage IV is on the chemotherapy for last 2 years came in with complaints of significant weakness and generalized and vomiting blood multiple episodes with possible melena. Patient received forms of PRBC transfusion. Her hemoglobin went up from 6.2-11.1, underwent upper GI endoscopy was started on Protonix upper GI endoscopy showed an ulcer which is presently nonradiating with the blood clot syndrome from the area. Patient is bit hyponatremic hypovolemic quite weak and tired. Blood glucose is bit elevated patient used to be diabetic and oral hypoglycemic agents were discontinued because of her loss of weight and blood glucose being under control. Patient received octreotide and antibiotics in ER for possibility of a variceal bleed although no paralysis will be evident on my upper GI endoscopy 05/19/2019 Patient doesn't have any more evidence of GI bleed clinically. Patient received 1 unit unit of blood transfusion patient will be discharged today to home with the home care if patient requires subacute rehabilitation may need to stay longer in the hospital. Palliative care is evaluating the patient patient wanted to continue treatment for pancreatic cancer. Oncology evaluated the patient. Patient will follow-up follow-up with oncology as an outpatient PHYSICAL EXAMINATION: GENERAL: The patient is alert and oriented x3, not in any acute distress. Thin built patient not lethargic today but still bit tired HEENT: Pupils are round and equally reacting to light. EOMI. No scleral icterus. No conjunctival pallor. Normocephalic, atraumatic. No pharyngeal erythema. No thyromegaly. CARDIOVASCULAR: S1 and S2 present. No murmurs, rubs, or gallops. PULMONARY: Chest is clear to auscultation, no wheezing or crackles. ABDOMEN: Soft, nontender, nondistended, normoactive bowel sounds. No palpable organomegaly. MUSCULOSKELETAL: No joint swelling or deformity. EXTREMITIES: No cyanosis, clubbing, or pedal edema. NEUROLOGICAL: Gross neurological examination did not reveal any focal deficits. SKIN: No rashes. Assessment and Plan Plan: -Acute blood loss anemia from upper GI bleed and peptic ulcer disease, patient will be discharged on Prilosec -Hypovolemic hyponatremia improved with IV fluids -Patient does have back pain which is secondary to pancreatic cancer pain management with the opiates medications avoid nonsteroidal anti-inflammatories. -Leukocytosis reactive secondary to GI bleed -Tachycardia secondary to GI bleed elevated blood sugars with the type 2 diabetes mellitus diet-controlled -Lactic acidosis secondary to severe intravascular depletion from dehydration and GI bleed. Continue with IV fluids Patient Condition at Discharge: Critical Plan - Discharge Summary Discharge Rx Participant: Yes New Discharge Prescriptions: New Lactulose [Cephulac] 20 gm PO TID PRN #300 ml PRN Reason: Congestion Polyethylene Glycol 3350 [Miralax] 17 gm PO DAILY PRN #15 packet PRN Reason: Constipation Omeprazole [PriLOSEC] 40 mg PO AC-BRKFST #30 capsule. No Action Morphine Sulfate 15 mg PO Q6H PRN PRN Reason: Pain Acetaminophen Tab [Tylenol Tab] 1,000 mg PO Q6HR PRN PRN Reason: Pain Discharge Medication List Acetaminophen Tab [Tylenol Tab] 1,000 mg PO Q6HR PRN 05/18/19 [History] Morphine Sulfate 15 mg PO Q6H PRN 05/18/19 [History] Lactulose [Cephulac] 20 gm PO TID PRN #300 ml 05/19/19 [Rx] Omeprazole [PriLOSEC] 40 mg PO AC-BRKFST #30 capsule. 05/19/19 [Rx] Polyethylene Glycol 3350 [Miralax] 17 gm PO DAILY PRN #15 packet 05/19/19 [Rx] Follow up Appointment(s)/Referral(s): Jose Luis Huerta DO [Primary Care Provider] - 3 Days Vidal Mera MD [STAFF PHYSICIAN] - 1 Week Discharge Disposition: HOME WITH HOME HEALTH SERVICES
--- NOTE | 2019-05-19 13:31 | P.PN ---
Subjective Progress Note Date: 05/19/19 Principal diagnosis: GI Bleed Improved stable Objective - Vital Signs Vital signs: Vital Signs Temp 99 F 05/19/19 12:00 Pulse 104 H 05/19/19 13:00 Resp 19 05/19/19 13:00 BP 150/83 05/19/19 13:00 Pulse Ox 95 05/19/19 13:00 Intake & Output 05/18/19 05/19/19 05/19/19 18:59 06:59 18:59 Intake Total 2425 1300 600 Output Total 395 685 315 Balance 2030 615 285 Weight 52.7 kg 52.7 kg Intake: IV 2425 1300 400 Sodium Chloride 0.9% 2024 1300 400 000 ml @ 100 mls/hr IV . Q10H [facility] Rx#:[id number] Intake, IV Titration 200 Amount Potassium Chloride 10 meq 200 In Water For Injection 1 100ml.bag @ 100 mls/hr IVPB Q1H [facility] Rx#: [id number] Blood Product 0 Rc As-1 Unit 0 [id number] Output: Urine 395 685 315 Other: Voiding Method Indwelling Catheter Indwelling Catheter Indwelling Catheter # Bowel Movements 1 - Exam - Constitutional Marked generalized weakness General appearance: no acute distress - EENT Eyes: EOMI, PERRLA - Neck Neck: no lymphadenopathy Thyroid: bilateral: normal size - Respiratory Respiratory: bilateral: CTA - Cardiovascular Rhythm: regular Heart sounds: normal: S1, S2 - Gastrointestinal General gastrointestinal: normal bowel sounds, soft - Integumentary Integumentary: normal - Neurologic Neurologic: CNII-XII intact - Musculoskeletal Musculoskeletal: generalized weakness, strength equal bilaterally - Psychiatric Psychiatric: A&O x's 3, appropriate affect - Labs CBC & Chem 7: 05/19/19 05:35 05/19/19 05:35 Labs: Abnormal Lab Results - Last 24 Hours (Table) 05/18/19 05/18/19 05/18/19 Range/Units 04:02 18:14 19:05 WBC 15.7 H (3.8-10.6) k/uL RBC 3.13 L (3.80-5.40) m/uL Hgb 8.8 L D (11.4-16.0) gm/dL Hct 26.7 L (34.0-46.0) % RDW 19.3 H (11.5-15.5) % Plt Count 134 L (150-450) k/uL Chloride (98-107) mmol/L BUN (7-17) mg/dL Glucose (74-99) mg/dL POC Glucose (mg/dL) 160 H (75-99) mg/dL Calcium (8.4-10.2) mg/dL Crossmatch See Detail 05/19/19 05/19/19 05/19/19 Range/Units 00:05 00:10 05:34 WBC 19.3 H (3.8-10.6) k/uL RBC 2.87 L (3.80-5.40) m/uL Hgb 8.1 L (11.4-16.0) gm/dL Hct 24.4 L (34.0-46.0) % RDW 19.5 H (11.5-15.5) % Plt Count 129 L (150-450) k/uL Chloride (98-107) mmol/L BUN (7-17) mg/dL Glucose (74-99) mg/dL POC Glucose (mg/dL) 113 H 129 H (75-99) mg/dL Calcium (8.4-10.2) mg/dL Crossmatch 05/19/19 05/19/19 05/19/19 Range/Units 05:35 05:35 12:36 WBC 22.0 H (3.8-10.6) k/uL RBC 2.81 L (3.80-5.40) m/uL Hgb 7.7 L (11.4-16.0) gm/dL Hct 24.0 L (34.0-46.0) % RDW 19.8 H (11.5-15.5) % Plt Count 119 L (150-450) k/uL Chloride 110 H (98-107) mmol/L BUN 28 H (7-17) mg/dL Glucose 121 H (74-99) mg/dL POC Glucose (mg/dL) 128 H (75-99) mg/dL Calcium 7.6 L (8.4-10.2) mg/dL Crossmatch Assessment and Plan Plan: Acute blood loss anemia The patient had presented with acute blood loss anemia that appears to be from an upper GI bleed. Hemoglobin had dropped into the 6 range, along with unstable hemodynamics. At this time blood pressure is in the normal range though heart rate is still elevated. Patient has received blood transfusion. Await repeat CBC. She has not had obvious recurrent bleeding over the past several hours. Continue to monitor closely and transfuse to keep hemoglobin greater than 7 - Hemoglobin 7.7 today Upper GI bleed The patient is presenting with a large volume GI bleed causing significant anemia and associated symptoms. The possibilities were discussed in detail with the family and the patient. She was advised that the etiology could be benign, such as ulcer or vascular malformation, versus related directly to her malignancy (invasion of tumor into the bowel lumen). She will need an EGD for further workup. She has been seen by GI and this has been recommended. I expected to the family that I totally agree with this recommendation. They were advised that in case of a benign source, this could potentially even be treatable endoscopically. However of this is due to tumor invasion, and this could be a more difficult condition to treat. In that case really the only option would be local radiation if possible. She was also advised even if etiology is benign, and there is progressive bleeding to where major surgical intervention would be required, she would be a poor candidate for the same because of her current performance status and progressive malignancy. - GI Following Primary pancreatic cancer with metastasis to other site Diagnostic and therapeutic circumstances as described. The patient is aware that her cancer is metastatic and unresectable. The objective of treatment is prolonged duration of life and palliation of symptoms chemotherapy will be on hold until acute situation sufficiently stabilizes. - Our office will be calling patient to set up follow-up prior to next treatment - Message sent in office to Ellie NELSON PLan: - Discussed with Dr. Tovar and will have patient follow-up for CBC next week and with Dr. Zamora prior to next treatment. I have completed the full history and physical of this patient and developed the complete impression and plan, Agree with Radha BANDA, dictated as a scribe
[2019-05-19 20:26] LABS: Glucose,Whole Blood 134 mg/dL (75-99)
[2019-05-20] MEDS: MORPHINE SULFATE 4 MG/ML SYRINGE IV PRN ×3 (03:14→14:07)
[2019-05-20] MEDS: SODIUM CHLORIDE 0.9% 1,000 ML IV SCH ×2 (03:19→16:24)
[2019-05-20 04:36] LABS: Anisocytosis Slight; HCT 26.1 % (34.0-46.0); HGB 8.3 gm/dL (11.4-16.0); Hypochromasia Slight; MCH 26.5 pg (25.0-35.0); MCHC 31.6 g/dL (31.0-37.0); MCV 83.9 fL (80.0-100.0); Mean Platelet Volume 9.8; Microcytosis Slight; Platelet Count 100 k/uL (150-450); Poikilocytosis Moderate; RBC 3.11 m/uL (3.80-5.40); RDW 19.1 % (11.5-15.5); WBC 23.8 k/uL (3.8-10.6)
[2019-05-20 04:40] LABS: African American GFR (CKD) >90 (>60 ml/min/1.73 sqM); Anion Gap 4 mmol/L; Blood Urea Nitrogen 25 mg/dL (7-17); Calcium 7.6 mg/dL (8.4-10.2); Carbon Dioxide 26 mmol/L (22-30); Chloride 106 mmol/L (98-107); Glucose 117 mg/dL (74-99); Potassium 3.2 mmol/L (3.5-5.1); Sodium 136 mmol/L (137-145)
[2019-05-20 04:52] LABS: Lymphocytes # (M) 1.43 k/uL (1.0-4.8); Monocytes # (M) 0.48 k/uL (0-1.0); Neutrophils % (M) 92 %; Nucleated Red Blood Cells 0 /100 WBC (0-0); Polychromasia Present; Total Cells Counted 100
[2019-05-20 06:58] LABS: Glucose,Whole Blood 119 mg/dL (75-99)
--- NOTE | 2019-05-20 07:22 | P.PN ---
Subjective Progress Note Date: 05/20/19 Principal diagnosis: GI bleed, anemia. The patient is seen today 05/20/2019 in follow-up on the intensive care unit. She is currently awake and alert in no acute distress. No shortness of breath, cough or congestion. No chest pain or palpitations. No abdominal discomfort. No active bleeding overnight. She is status post 5 units of packed red blood cells and 2 units of fresh frozen plasma. Current hemoglobin 8.3. Platelet count 100,000. White count 23.8. Creatinine 0.59. Potassium 3.2. Sodium 136. Calcium 7.6. She is maintaining good O2 saturations in the 90s on room air. She's a 0.9 normal saline at 100 mL per hour. Objective - Vital Signs Vital signs: Vital Signs Temp 99.2 F 05/20/19 04:00 Pulse 92 05/20/19 04:00 Resp 18 05/20/19 04:00 BP 146/77 05/20/19 04:00 Pulse Ox 96 05/20/19 04:00 Intake & Output 05/19/19 05/20/19 05/20/19 18:59 06:59 18:59 Intake Total 1340 830 Output Total 635 645 Balance 705 185 Weight 52.7 kg Intake: IV 600 800 .9 300 Sodium Chloride 0.9% 1, 600 500 000 ml @ 100 mls/hr IV . Q10H [facility] Rx#:[id number] Intake, IV Titration 500 Amount Potassium Chloride 10 meq 200 In Water For Injection 1 100ml.bag @ 100 mls/hr IVPB Q1H [facility] Rx#: [id number] Sodium Chloride 0.9% 1, 300 000 ml @ 100 mls/hr IV . Q10H [facility] Rx#:[id number] Oral 240 30 Blood Product 0 Rc As-1 Unit 0 [id number] Output: Urine 635 645 Other: Voiding Method Indwelling Catheter Indwelling Catheter # Bowel Movements 1 - Exam GENERAL EXAM: Alert, pleasant, thin 68-year-old female patient, comfortable, no acute distress. On room air. HEAD: Normocephalic/atraumatic. EYES: Normal reaction of pupils, equal size. Conjunctiva pink, sclera white. NOSE: Clear with pink turbinates. THROAT: No erythema or exudates. NECK: No masses, no JVD, no thyroid enlargement, no adenopathy. CHEST: No chest wall deformity. Symmetrical expansion. LUNGS: Equal air entry with crackles in the left base. CVS: Regular rate and rhythm, normal S1 and S2, no gallops, no murmurs, no rubs ABDOMEN: Soft, nontender. No hepatosplenomegaly, normal bowel sounds, no guarding or rigidity. EXTREMITIES: No clubbing, no edema, no cyanosis, 2+ pulses and upper and lower extremities. MUSCULOSKELETAL: Muscle strength and tone normal. SPINE: No scoliosis or deformity SKIN: No rashes CENTRAL NERVOUS SYSTEM: No focal deficits, tone is normal in all 4 extremities. PSYCHIATRIC: Alert and oriented -3. Appropriate affect. Intact judgment and insight. - Labs CBC & Chem 7: 05/20/19 04:20 05/20/19 04:20 Labs: Abnormal Lab Results - Last 24 Hours (Table) 05/18/19 05/19/19 05/19/19 Range/Units 04:02 12:36 20:15 WBC (3.8-10.6) k/uL RBC (3.80-5.40) m/uL Hgb (11.4-16.0) gm/dL Hct (34.0-46.0) % RDW (11.5-15.5) % Plt Count (150-450) k/uL Neutrophils # (Manual) (1.3-7.7) k/uL Sodium (137-145) mmol/L Potassium (3.5-5.1) mmol/L BUN (7-17) mg/dL Glucose (74-99) mg/dL POC Glucose (mg/dL) 128 H 134 H (75-99) mg/dL Calcium (8.4-10.2) mg/dL Crossmatch See Detail 05/20/19 05/20/19 05/20/19 Range/Units 04:20 04:20 06:56 WBC 23.8 H (3.8-10.6) k/uL RBC 3.11 L (3.80-5.40) m/uL Hgb 8.3 L (11.4-16.0) gm/dL Hct 26.1 L (34.0-46.0) % RDW 19.1 H (11.5-15.5) % Plt Count 100 L (150-450) k/uL Neutrophils # (Manual) 21.90 H (1.3-7.7) k/uL Sodium 136 L (137-145) mmol/L Potassium 3.2 L (3.5-5.1) mmol/L BUN 25 H (7-17) mg/dL Glucose 117 H (74-99) mg/dL POC Glucose (mg/dL) 119 H (75-99) mg/dL Calcium 7.6 L (8.4-10.2) mg/dL Crossmatch Assessment and Plan Assessment: Assessment: #1. Acute GI bleeding, hematemesis, and acute GI blood loss anemia presenting hemoglobin of 6.2, has been transfused with 5 units of packed red blood cells and 2 units of fresh frozen plasma. Current hemoglobin 8.3. Platelets 100,000. #2. Stage IV pancreatic cancer #3. Acute lactic acidosis, related to GI bleeding, not related to sepsis #4. Diabetes mellitus #5. GERD/reflux #6. Lifetime nonsmoker #7. History of a thyroid nodule, with benign biopsy #8. History of cataract Plan: The patient was seen and evaluated by Dr. Mccall. She is stable from the pulmonary and critical care standpoint only transferred out of the ICU today. We'll continue to monitor her hemoglobins. We'll continue to follow make further recommendations based on her clinical status. Home once cleared medically. I, the cosigning physician, performed a history & physical examination of the patient. Lungs sounds crackles in left base. Maintaining good O2 saturations in the 90s on room air. I discussed the assessment and plan of care with my nurse practitioner, Zina Ibarra. I attest to the above note as dictated by her.
[2019-05-20] MEDS: INSULIN ASPART (NovoLOG) 100 UNIT/ML VIAL SQ SCH ×3 (07:43→17:16)
[2019-05-20] MEDS: POTASSIUM CHLORIDE 20 MEQ in WATER FOR INJECTION 1 100ML.BAG IVPB SCH ×2 (08:55→12:00)
[2019-05-20] MEDS: PANTOPRAZOLE 40 MG/10 ML VIAL IVP SCH (08:55)
[2019-05-20 09:07] VITALS: TEMP 99.8
[2019-05-20] MEDS: HYDROmorphone 1 MG/ML 1 ML SYRINGE IVP PRN ×2 (10:57→16:53)
--- NOTE | 2019-05-20 11:27 | PN ---
PROGRESS NOTE DATE OF SERVICE: 05/20/2019 Patient is a 68-year-old white female admitted to the hospital with acute upper GI bleed. She underwent an upper endoscopy by Dr. 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 She received total of 5 units of blood transfusion during this hospitalization. Last hemoglobin is 8.3 g/dL. She had 1 episode of maroon-colored stool last night, none this morning. PHYSICAL EXAMINATION: Appears comfortable, in no apparent distress. VITAL SIGNS: Stable. Blood pressure is 131/73, pulse rate 91, temperature 88. HEENT: Examination unremarkable, conjunctivae are pink, sclerae nonicteric, oral cavity no lesions. NECK: No JVD or lymph node enlargement. CHEST: Clear to auscultation. HEART: Regular rate and rhythm. ABDOMEN: Soft. Bowel sounds are positive. No organomegaly. EXTREMITIES: No pedal edema. NEUROLOGIC: Alert and oriented x3. No focal deficits. LABS: BUN is 25, creatinine 0.5, hemoglobin 8.3, WBC 23.8, and platelets are 100. IMPRESSION: 1. Metastatic pancreatic cancer. Patient just decided to go to hospice last night. 2. Acute upper gastrointestinal bleed secondary to gastric ulcer/deformed pylorus, status post EGD by Dr. Mera 2 days ago. She received a total of 5 units of blood transfusion so far. Hemoglobin stable at 8.8 g/dL. RECOMMENDATIONS: 1. Continue with Protonix 40 mg twice daily. 2. Advance diet as tolerated. 3. The patient will be discharged home today with hospice followup, we will not plan on any further endoscopic intervention. Thank you for this consultation. MMODL / IJN: [id number] /
[2019-05-20 11:49] VITALS: BP 142/69; PULSE 88; RESP 13
[2019-05-20] MEDS ORDERED: POTASSIUM CHLORIDE ER 20 MEQ TAB.ER PO STA (15:38)
--- NOTE | 2019-05-20 15:49 | P.DS ---
Providers Date of admission: 05/18/19 05:14 Attending physician: Pedro Burks Consults: 05/18/19 05:14 Consult Physician Stat Consulting Provider: Aaron Mccall Consult Reason/Comments: ICU mgmt Do you want consulting provider notified?: Already Contacted 05/18/19 05:15 Consult Physician Routine Consulting Provider: Edgardo Zamora Consult Reason/Comments: extablished patient Do you want consulting provider notified?: Yes, Notify in am Consult Physician Urgent Consulting Provider: Vidal Mera Consult Reason/Comments: upper GIB Do you want consulting provider notified?: Yes Primary care physician: [facility] Course: Hospital course: 68-year-old presents female with history of pancreatic cancer metastatic stage IV is on the chemotherapy for last 2 years came in with complaints of significant weakness and generalized and vomiting blood multiple episodes with possible melena. Patient received forms of PRBC transfusion. Her hemoglobin went up from 6.2-11.1, underwent upper GI endoscopy was started on Protonix upper GI endoscopy showed an ulcer which is presently nonradiating with the blood clot syndrome from the area. Patient is bit hyponatremic hypovolemic quite weak and tired. Blood glucose is bit elevated patient used to be diabetic and oral hypoglycemic agents were discontinued because of her loss of weight and blood glucose being under control. Patient received octreotide and antibiotics in ER for possibility of a variceal bleed although no paralysis will be evident on my upper GI endoscopy 05/19/2019 Patient doesn't have any more evidence of GI bleed clinically. Patient received 1 unit unit of blood transfusion patient will be discharged today to home with the home care if patient requires subacute rehabilitation may need to stay longer in the hospital. Palliative care is evaluating the patient patient wanted to continue treatment for pancreatic cancer. Oncology evaluated the patient. Patient will follow-up follow-up with oncology as an outpatient 05/20/2019 Patient is fully awake and oriented. She is limits sleepy from her pain medication. She complaining of from back pain. She does have dry mouth possibly from the narcotics. Hospice team has been consulted yesterday and evaluated the patient (see notes section from yesterday). patient and family at bedside including one of the daughters are been already decided for hospice for the patient. Patient states that she has a prescription for her morphine pills at home however she wants and agrees to 2-3 days of morphine solution in case she has difficulty swallowing. Vitals stable and hemoglobin is stable at 8.3. Patient will be discharged on omeprazole. Discussed the management plan with the patient and family at bedside and all their questions were answered. They agreed to be discharged today with home with hospice. Scripts were reviewed with the patient PHYSICAL EXAMINATION: GENERAL: The patient is alert and oriented x3, not in any acute distress. Malena ent is cachectic and generally weak. Patient is pale HEENT: Pupils are round and equally reacting to light. EOMI. No scleral icterus. No conjunctival pallor. Normocephalic, atraumatic. No pharyngeal erythema. No thyromegaly. CARDIOVASCULAR: S1 and S2 present. No murmurs, rubs, or gallops. PULMONARY: Chest is clear to auscultation, no wheezing or crackles. ABDOMEN: Soft, nontender, nondistended, normoactive bowel sounds. No palpable organomegaly. MUSCULOSKELETAL: No joint swelling or deformity. EXTREMITIES: No cyanosis, clubbing, or pedal edema. NEUROLOGICAL: Gross neurological examination did not reveal any focal deficits. SKIN: No rashes. Time spent more than 35 minutes Patient Condition at Discharge: Critical Plan - Discharge Summary Discharge Rx Participant: Yes New Discharge Prescriptions: New Lactulose [Cephulac] 20 gm PO TID PRN #300 ml PRN Reason: Congestion Polyethylene Glycol 3350 [Miralax] 17 gm PO DAILY PRN #15 packet PRN Reason: Constipation Omeprazole [PriLOSEC] 40 mg PO AC-BRKFST #30 capsule. No Action Morphine Sulfate 15 mg PO Q6H PRN PRN Reason: Pain Acetaminophen Tab [Tylenol Tab] 1,000 mg PO Q6HR PRN PRN Reason: Pain Discharge Medication List Acetaminophen Tab [Tylenol Tab] 1,000 mg PO Q6HR PRN 05/18/19 [History] Morphine Sulfate 15 mg PO Q6H PRN 05/18/19 [History] Lactulose [Cephulac] 20 gm PO TID PRN #300 ml 05/19/19 [Rx] Omeprazole [PriLOSEC] 40 mg PO AC-BRKFST #30 capsule. 05/19/19 [Rx] Polyethylene Glycol 3350 [Miralax] 17 gm PO DAILY PRN #15 packet 05/19/19 [Rx] Follow up Appointment(s)/Referral(s): [facility], [NON-STAFF] - 1-2 Days (Palliaitve care can be reached at this phone number also.) Jose Luis Huerta DO [Primary Care Provider] - 3 Days Vidal Mera MD [STAFF PHYSICIAN] - 1 Week Activity/Diet/Wound Care/Special Instructions: When discharge time is known call [phone] to notify hospice team Discharge Disposition: HOME WITH HOME HEALTH SERVICES
== END 2019-05-20 17:49 | disposition hospice, home (50) | DRG 378 ==
LOC: EC 03:32 → 2SICU 05:14
PROVIDERS: ADMIT Hospitalist; ATTEND Hospitalist
PROC: 30233K1 Transfusion of Nonautologous Frozen Plasma into Peripheral Vein, Percutaneous Approach (ICD-10-PCS; 2019-05-18)
PROC: 30233N1 Transfusion of Nonautologous Red Blood Cells into Peripheral Vein, Percutaneous Approach (ICD-10-PCS; 2019-05-18)
PROC: 0DJ08ZZ Inspection of Upper Intestinal Tract, Via Natural or Artificial Opening Endoscopic (ICD-10-PCS; principal; 2019-05-18 08:35)
DX: K25.4 Chronic or unspecified gastric ulcer with hemorrhage (principal); C25.9 Malignant neoplasm of pancreas, unspecified; C78.6 Secondary malignant neoplasm of retroperitoneum and peritoneum; C79.72 Secondary malignant neoplasm of left adrenal gland; D62 Acute posthemorrhagic anemia; E87.1 Hypo-osmolality and hyponatremia; E87.2 Acidosis; I95.9 Hypotension, unspecified; E11.65 Type 2 diabetes mellitus with hyperglycemia; E78.5 Hyperlipidemia, unspecified; D72.829 Elevated white blood cell count, unspecified; E86.0 Dehydration; E86.1 Hypovolemia; G89.3 Neoplasm related pain (acute) (chronic); M54.9 Dorsalgia, unspecified; I10 Essential (primary) hypertension; K21.9 Gastro-esophageal reflux disease without esophagitis; K44.9 Diaphragmatic hernia without obstruction or gangrene; E04.1 Nontoxic single thyroid nodule; Z66 Do not resuscitate; Z88.2 Allergy status to sulfonamides; Z90.49 Acquired absence of other specified parts of digestive tract; Z83.3 Family history of diabetes mellitus; Z98.42 Cataract extraction status, left eye; Z98.41 Cataract extraction status, right eye; Z96.1 Presence of intraocular lens; W06.XXXA Fall from bed, initial encounter
CPT/HCPCS: 36415; 43235; 71045; 80048; 80053; 83605; 83735; 84484; 85025; 85027; 85610; 85730; 86850; 86900; 86901; 86920; 96365; 96375; 99291